=== PATIENT | male | born 1960 | race Caucasian/White ===

== ENCOUNTER 2023-09-11 15:55 | Observation (INO) | payer BC, SELFPAY ==
[2023-09-11] VITALS (10 sets, daily range): BP systolic 141–166; BP diastolic 84–102; PULSE 62–89; RESP 15–20; TEMP 36.1–36.8; O2SAT 97–100; BMI 30.2
--- NOTE | 2023-09-11 16:12 | EKG12_ITS ---
Test Reason : STROKE Blood Pressure : / mmHG Vent. Rate : 085 BPM Atrial Rate : 085 BPM P-R Int : 148 ms QRS Dur : 100 ms QT Int : 376 ms P-R-T Axes : 062 -02 039 degrees QTc Int : 447 ms Normal sinus rhythm Incomplete right bundle branch block Nonspecific ST abnormality Abnormal ECG Confirmed by HEATHER SAWYER, MICHAEL ([id number]), marketing editor SHERINE RIOS ([id number]) on 09/12/2023 8:38:00 AM Referred By: Confirmed By:MICHAEL ROMERO MD
--- NOTE | 2023-09-11 16:12 | RAD_ITS ---
STUDY: X-RAY CHEST REASON FOR EXAM: Male, 62 years old. Neuro deficit, acute, stroke suspected TECHNIQUE: Single AP portable view of the chest. COMPARISON: None. FINDINGS: The lungs are clear and expanded. There is no demonstrated pleural abnormality. Normal size heart. Normal mediastinum and sreekanth. Normal visualized pulmonary arteries. There is atherosclerotic tortuosity of the aortic arch and descending thoracic aorta. There are diffuse degenerative changes of the visualized thoracic spine. Normal visualized ribs, clavicles, and shoulders. There is no demonstrated abnormality of the visualized soft tissue structures of the upper abdomen. RAD/Chest 1 View IMPRESSION: Degenerative changes, as described above. No demonstrated acute cardiopulmonary process. Electronically Signed: Seth Langley MD at 16:57 EDT ,
--- NOTE | 2023-09-11 16:13 | CT_ITS ---
STUDY: CTA HEAD AND NECK WITH CONTRAST REASON FOR EXAM: Male, 62 years old. TIA RADIATION DOSAGE (If Supplied By Facility): CTDIvol = ( 18.69 ) mGy, DLP = ( 969.36 ) mGycm TECHNIQUE: CT angiography was performed with a multi-detector CT scanner. Data acquisition was obtained from the skull base through the vertex following intravenous administration of IV 100mL [id number]-370. MIP images were reconstructed from the axial data set. Post-processing of the angiographic images was performed, with multiplanar reformation and 3D reconstruction. Individualized dose optimization techniques were used for this CT. COMPARISON: Head CT dated September 11, 2023 FINDINGS: Normal bilateral petrous carotid arteries. There is calcified plaque formation of the right cavernous carotid artery, with a moderate stenosis (50-75%). Normal left cavernous carotid artery with a normal supraclinoid bifurcation. Normal right A1 segments of the anterior cerebral artery. Normal left A1 segments of the anterior cerebral artery. Normal intact anterior communicating artery (ACOM). Normal bilateral A2 segments of the anterior cerebral arteries. Normal right M1 and M2 segments of the middle cerebral arteries, with a normal M1 bifurcation. Normal left M1 and M2 segments of the middle cerebral arteries, with a normal M1 bifurcation. There is non-visualization of the right posterior communicating artery (PCOM). Normal left posterior communicating artery (PCOM). Normal bilateral vertebral arteries. Normal basilar artery with a normal basilar bifurcation. The visualized bilateral superior cerebellar (SCA) arteries are normal. Normal bilateral P1, P2 and visualized P3 segments of the posterior cerebral arteries. There is no demonstrated aneurysm of the [place]. No demonstrated thrombus or occlusion or hemodynamically significant stenosis of the major intracranial arteries. Neck CTA: AORTIC ARCH: There is atherosclerotic calcific plaque formation of the aortic arch and great vessels arising from the aortic arch, without a hemodynamically significant stenosis. There is a normal origin of the brachiocephalic, left common carotid, and left subclavian arteries. Normal origins of the brachiocephalic, left common carotid, and left subclavian arteries. RIGHT CAROTID ARTERIES: Normal right common carotid artery (CCA). There is mild atherosclerotic plaque formation with minimal narrowing of the right carotid bulb. There is mild atherosclerotic plaque formation of the origin of the right internal carotid artery with less than 50% cross sectional diameter stenosis. Normal visualized cervical portion of the right internal carotid artery. There is mild atherosclerotic plaque formation of the origin of the right external carotid artery with less than 50% cross sectional diameter stenosis. LEFT CAROTID ARTERIES: Normal left common carotid artery (CCA). There is mild atherosclerotic plaque formation with minimal narrowing of the left carotid bulb. Normal origin of the left internal carotid (ICA) artery without a hemodynamically significant stenosis. Normal visualized cervical portion of the left internal carotid artery. Normal origin of the left external carotid artery (ECA). VERTEBRAL ARTERIES: Mild atherosclerotic plaque and stenosis at the right vertebral/subclavian junction. Normal remaining aspects of the right extracranial vertebral artery. Normal left extracranial vertebral artery. CT/CTA Head AND Neck W/ Contrast IMPRESSION: 1. There is no demonstrated aneurysm of the [place]. No demonstrated thrombus or occlusion or hemodynamically significant stenosis of the major intracranial arteries. 2. Mild plaque of the right carotid bulb and origin of the ICA. N.B. : The above Results were Read Back by Seth Langley MD to Susanna Mcdowell MD, and understanding confirmed on 09/11/2023 17:31:00 (ET). Electronically Signed: Seth Langley MD at 17:32 EDT ,
--- NOTE | 2023-09-11 16:14 | ED.VIS.STROK ---
HPI History of Present Illness Chief Complaint: Neuro S/Sx Informant: patient, spouse/S.O. and EMS Onset/Context/Timing Onset: Today Narrative Narrative: Patient presents secondary to slurred speech and unable to use his left arm. He was sitting at work around 325 when he suddenly had difficulty speaking, coworker noted left-sided his face drooping, and he was unable to use his left arm. He states symptoms lasted about 10 seconds and then resolved. Within a few minutes he had a second episode of the same symptoms. He states he did stand and his legs seem to be unaffected. At this time symptoms seem to be resolved. Patient denies any past medical history, however states it has been several years since he has seen a physician. He does report that he has been having a pulling sensation in his lower chest lately that he thought was a pulled muscle. He denies any chest pain at this time. PFSH PFSH Medical History Obesity Former cigarette smoker Chewing tobacco use Medical History no medical history no medical history Home Medications ?Medication ?Instructions ?Recorded ?Last Taken ?Type NK 02/09/21 Unknown History Allergy/AdvReac Type Severity Reaction Status Date / Time No Known Allergies Allergy Verified 09/11/23 16:00 Family History (Updated 09/11/23 @ 20:[address] Nasrin Leon MD) Mother Diabetes Father Diabetes Brother CAD (coronary artery disease) Heart disease Hypertension CVA (cerebral vascular accident) Surgical History History of dental surgery Surgical History no surgical history Social History (Updated 09/11/23 @ 20:[address] Nasrin Leon MD) household members: spouse Smoking Status: Former smoker Smokeless tobacco user: chewing tobacco how long ago did patient quit smoking: Quit cigarette tobacco use 15 yrs prior, 1 ppd since teen until quit. alcohol intake: current alcohol intake frequency: a few times a month Alcohol type: beer substance use type: does not use ROS ROS ED Constitutional Constitutional ED: Denies chills or fever(s) Eyes Eyes: Denies change in vision or discharge from eye(s) ENT ENT ED: Denies discharge from eye(s), rhinorrhea or sore throat Cardiovascular Cardiovascular: Denies chest pain or palpitations Respiratory/Chest Respiratory/Chest: Denies cough or dyspnea Gastrointestinal Gastrointestinal: Denies abdominal pain, nausea or vomiting Genitourinary Genitourinary ED: Denies dysuria Musculoskeletal Musculoskeletal: Denies back pain or extremity pain Integumentary Denies Abrasions or rash Neurologic Neurologic: Reports weakness and other Details: Speech difficulty ; Denies headache(s) Psychiatric Psychiatric: Denies anxiety or depression Allergic/Immunologic Allergic/Immunologic ED: Denies lip swelling or urticaria EXAM Physical Exam Const Vital Signs: 09/11/23 15:56 09/11/23 16:12 09/11/23 16:12 Temperature 97.0 F L Temperature Source Temporal Pulse Rate 82 89 Respiratory Rate 16 19 H Blood Pressure 145/102 H 156/97 H Blood Pressure Mean 116 116 Pulse Ox 99 98 100 Oxygen Delivery Method Room Air Room Air Room Air 09/11/23 16:42 Temperature Temperature Source Pulse Rate 84 Respiratory Rate 18 Blood Pressure 166/98 H Blood Pressure Mean 120 Pulse Ox 99 Oxygen Delivery Method Room Air Positive well nourished and well developed General Appearance ED: well developed HEENT Reports normocephalic and head/scalp atraumatic Eyes PERRL and EOMs intact bilaterally Neck supple Chest Wall inspection of chest normal and palpation of chest normal Resp normal respiratory effort and clear to auscultation bilaterally Cardio regular rate and regular rhythm GI normal to inspection, nondistended, normoactive bowel sounds Palpation: soft Extremity normal to inspection Neuro oriented x3 and no sensory deficits noted Sensorium / Orientation: alert Motor Exam: strength 5/5 throughout Psych mental status grossly normal Skin no rashes or lesions noted NIHSS NIHSS Initial: 1a Level of Consciousness: 0 1b LOC Questions (Score 2 if aphasic/stupor): 0 1c LOC Commands (Only score 1st attempt): 0 2 Best Gaze (If aphasic, use reflexive mvmts.): 0 3 Visual: 0 4 Facial Palsy: 0 5 Motor Arm Right (UN = amputation/fusion): 0 5 Motor Arm Left: 0 6 Motor Leg Right: 0 6 Motor Leg Left: 0 7 Limb ataxia (Only + if out of proportion): 0 8 Sensory (Aphasia/stupor=0 or 1, coma=2): 0 9 Best Language: 0 10 Dysarthria (mute, coma=2, intubated=UN): 0 11 Extinction and Inattention (only scored if +): 0 Total Score: 0 MDM MDM MDM Narrative Medical decision making narrative: Patient presents with 2 separate episodes of TIA symptoms less than an hour ago. In light of this I will initiate a stroke alert. Patient placed on pocket machine operator. EKG obtained to evaluate for cardiac arrhythmia/ischemia. IV line established. Labwork obtained to evaluate for leukocytosis, anemia, and electrolyte derangement. Patient sent to CT for brain imaging along with CTA of the head and neck. History & Record Review Discussion w/independent historian: Patient and Significant other Lab Data Attestation: I reviewed the patient's lab results. Labs: Laboratory Results - last 24 hr 09/11/23 09/11/23 16:15 16:27 WBC 7.1 RBC 5.19 Hgb 15.2 Hct 45.4 MCV 87.5 MCH 29.3 MCHC 33.5 RDW Std Deviation 39.4 RDW Coeff of [place] 12.4 Plt Count 260 MPV 10.1 Immature Gran % (Auto) 0.300 Neut % (Auto) 49.3 Lymph % (Auto) 34.1 [place] % (Auto) 11.6 H Eos % (Auto) 4.1 Baso % (Auto) 0.6 Absolute Neuts (auto) 3.5 Absolute Lymphs (auto) 2.41 Nucleated RBC % 0 PT 12.4 INR 0.9 APTT 26.4 Sodium 140 Potassium 3.4 L Chloride 106 Carbon Dioxide 28.0 Anion Gap 6 BUN 20 H Creatinine 1.28 Est GFR (MDRD) Af Amer 73 Est GFR (MDRD) Non-Af 60 BUN/Creatinine Ratio 15.6 Glucose 72 L Calcium 9.5 Magnesium 2.2 Troponin I High Sens < 3 L POC Glucose 69 L Radiography Chest X-Ray - ED: 1 View, Read by ED Physician, Normal, Heart, Lungs and Mediastinum Diagnostic Testing: Clinical Impression(s) from Imaging Studies Chest X-Ray 09/11/23 16:12 IMPRESSION: Degenerative changes, as described above. No demonstrated acute cardiopulmonary process. Electronically Signed: Seth Langley MD at 16:57 EDT , Head/Neck CTA 09/11/23 16:13 IMPRESSION: 1. There is no demonstrated aneurysm of the [place]. No demonstrated thrombus or occlusion or hemodynamically significant stenosis of the major intracranial arteries. 2. Mild plaque of the right carotid bulb and origin of the ICA. N.B. : The above Results were Read Back by Seth Langley MD to Susanna Mcdowell MD, and understanding confirmed on 09/11/2023 17:31:00 (ET). Electronically Signed: Seth Langley MD at 17:32 EDT , ADDENDUM: 09/11/23 1739 IMPRESSION: 1. There is no demonstrated aneurysm of the [place]. No demonstrated thrombus or occlusion or hemodynamically significant stenosis of the major intracranial arteries. 2. Mild plaque of the right carotid bulb and origin of the ICA. N.B. : The above Results were Read Back by Seth Langley MD to Susanna Mcdowell MD, and understanding confirmed on 09/11/2023 17:31:00 (ET). Electronically Signed: Seth Langley MD at 17:32 EDT , Brain CT 09/11/23 16:16 IMPRESSION: No acute intracranial findings. Electronically Signed: Zak Zapata MD at 16:35 EDT , ADDENDUM: 09/11/23 1644 IMPRESSION: No acute intracranial findings. N.B. : The above Results were Read Back by Zak Zapata MD to Susanna Mcdowell MD, and understanding confirmed on 09/11/2023 16:37:35 (ET). Electronically Signed: Zak Zapata MD at 16:35 EDT , EKG Initial EKG: Attestation: I personally reviewed and interpreted this EKG as follows: Interpretation: Sinus Rhythm (Sinus rhythm 85 bpm with an incomplete right bundle branch block. No acute ischemia.) Treatment and Re-Evaluation Narrative: Patient seen and evaluated by neurologist at [facility]. Symptoms resolved at the time of their exam as well. Noncontrast head CT unremarkable. They recommended that if the CTA of the head and neck were normal patient can be admitted here for remainder of stroke workup. CBC reveals white count of 7.1 with normal differential. Hemoglobin 15.2. Chemistry studies reveal slightly low potassium at 3.4. BUN is 20 and creatinine is 1.28. I do not have prior values for comparison. Troponin is less than 3. EKG is sinus rhythm with incomplete right bundle branch block. No acute ischemia. CTA of the head and neck reveals mild disease in the carotids, no acute findings in the brain. Patient will be admitted to observation status for remainder of stroke workup. Discharge Plan Dx/Rx/DC Orders Clinical Impression: Brain TIA Disposition Disposition: Acute Care Hospital [facility] Discharge Date/Time: 09/11/23 18:03
--- NOTE | 2023-09-11 16:14 | NURSING ---
STROKE ALERT CALLED
--- NOTE | 2023-09-11 16:16 | CT_ITS ---
We are attempting to reach an attending provider to discuss findings. An addendum with communication details will be sent when the communication is complete. INDICATION: Neuro deficit, acute, stroke suspected EXAMINATION: CT BRAIN - CT Head or Brain W/O Contrast Injection TECHNIQUE: Multiple axial images were obtained of the head without intravenous contrast. A radiation dose optimization technique was used for this scan. IV Contrast dosage and agent: None. COMPARISON: None. FINDINGS: BRAIN PARENCHYMA: No intra- or extra-axial hemorrhage. No evidence of acute infarct. No intracranial mass or mass effect. There is preservation of the downing/white matter interface. Posterior fossa structures are unremarkable. CSF SPACES: Appropriate for age. No hydrocephalus. Basal cisterns are patent. CALVARIUM, SKULL BASE, PARANASAL SINUSES AND MASTOID AIR CELLS: Clear. No discrete lytic or blastic abnormalities. ORBITS: Both globes, extraocular muscles, optic nerves and retrobulbar fat appear unremarkable. CT/STROKE Brain/Head without Cont IMPRESSION: No acute intracranial findings. Electronically Signed: Zak Zapata MD at 16:35 EDT ,
--- NOTE | 2023-09-11 16:21 | NURSING ---
NO OLD EKGS
[2023-09-11 16:24] LABS: Absolute Lymphocyte Count 2.41 X10^3/uL (0.83-4.51); Absolute Neutrophil Count 3.5 X10^3/uL (2.0-7.7); Basophil# 0.04 X10^3/uL; Basophil% 0.6 % (0-1); Eosinophil# 0.29 X10^3/uL; Eosinophils% 4.1 % (0-5); Hematocrit 45.4 % (40-54); Hemoglobin 15.2 g/dL (13.0-16.5); Lymphocyte # 2.41 X10^3/ul (0.83-4.51); Lymphocyte % 34.1 % (19-41); Mean Corp Hgb Conc 33.5 g/dL (32-36); Mean Corpuscular Hgb 29.3 pg (27.0-32.0); Mean Corpuscular Volume 87.5 fL (80-94); Mean Platelet Vol. 10.1 fl (6.2-12.0); Monocyte# 0.82 X10^3/uL; Monocyte% 11.6 % (0-10); NRBC Flagged by Analyzer 0 % (0-5); Neutrophil # 3.48 X10^3/uL (2.7-7.7); Neutrophil % 49.3 % (47-70); Platelet Count 260 K/mm3 (150-450); RBC Distribution Width CV 12.4 % (11.6-14.6); RBC Distribution Width SD 39.4 fl (35.1-43.9); Red Blood Count 5.19 M/mm3 (4.6-6.2); White Blood Count 7.1 K/mm3 (4.4-11.0)
[2023-09-11 16:34] LABS: International Normalized Ratio 0.9; Partial Thromboplast Time 26.4 Seconds (24.1-36.2); Prothrombin Time (Protime)PT. 12.4 SECONDS (11.7-14.9)
[2023-09-11 16:41] LABS: Anion Gap 6 (5-15); BUN 20 mg/dL (7-18); BUN/Creat Ratio 15.6 RATIO (10-20); Calcium,Total 9.5 mg/dL (8.5-10.1); Chloride 106 mmol/L (98-107); Creatinine, Serum 1.28 mg/dL (0.70-1.30); EST Glomerular Filtration Rate 60 mL/min (>60); Est Glom Filt Rate - Afr Amer 73 mL/min (>60); Glucose 72 mg/dL (74-106); Potassium 3.4 mmol/L (3.5-5.1); Sodium Level 140 mmol/L (136-145); Troponin-I HS < 3 pg/mL (3.0-78.0)
[2023-09-11 16:48] LABS: Bedside Glucose 69 mg/dL (74-106)
--- NOTE | 2023-09-11 16:59 | HP.PCM.HOS_ITS ---
HPI - General General Date of Admission: 09/11/23 Date of Service: 09/11/23 Chief Complaint: Slurred speech, L sided facial droop, LUE paresthesias, LUE weakness. HPI Narrative The patient is a 62 y/o M w/ PMHx: Chew tobacco use, Obesity who presents to the [facility] ED on 09/11/23 with history of second work in approximately 325 onset significant difficulty speaking with a coworker noticing a left sided facial droop and at that point he was unable to use his left arm with also paresthesias with reportedly slurred speech with the symptoms lasting approximately 10 seconds with complete resolution following however he had another episode a few minutes following this with symptoms again resolving with no neurological findings to his lower extremities reporting that he was able to stand and move without issue that way and given these findings prompted ED evaluation to be cautious. He does report that he has not seen a physician in many years and denies any known medical history. In the ED initial NIH stroke score 0 with resolution of symptoms at time of ED evaluation. Patient also reported atypical sensation of lower chest strain notes he is regularly active but not necessarily aerobic but states it is currently improved. He denies any recent dyspnea. Workup in the ED included vital signs T97, heart rate 82, BP 145/102, respiratory rate 16, 99% on room air, CBC with WC 7.1, human 15.2, platelets 260 without marked shift, coags unremarkable, BMP with potassium 3.4, BUN/creatinine 20/1.28, glucose 72, troponin <3, EKG SR with incomplete RBBB, CT head with no acute intracranial findings, CTA head and neck with no demonstrated aneurysm in the pala of [place], no demonstrated thrombus or occlusion or hemodynamically significant stenosis of the major intracranial arteries, mild plaque of the right carotid bulb and origin of the ICA, CXR with no acute cardiopulmonary findings. ED discussed case and reviewed with neurology given stroke alert initiation. In the ED patient ministered full-strength aspirin therapy. [facility] Medical History Obesity Former cigarette smoker Chewing tobacco use Medical History no medical history Home Medications ?Medication ?Instructions ?Recorded ?Last Taken ?Type NK 02/09/21 Unknown History Allergy/AdvReac Type Severity Reaction Status Date / Time No Known Allergies Allergy Verified 09/11/23 16:00 Family History (Updated 09/11/23 @ 20:[address] Nasrin Leon MD) Mother Diabetes Father Diabetes Brother CAD (coronary artery disease) Heart disease Hypertension CVA (cerebral vascular accident) Surgical History History of dental surgery Surgical History no surgical history Social History (Updated 09/11/23 @ 20:[address] Nasrin Leon MD) household members: spouse Smoking Status: Former smoker Smokeless tobacco user: chewing tobacco how long ago did patient quit smoking: Quit cigarette tobacco use 15 yrs prior, 1 ppd since teen until quit. alcohol intake: current alcohol intake frequency: a few times a month Alcohol type: beer substance use type: does not use ROS ROS Narrative Admission Review of Systems: CONSTITUTIONAL: No weight loss, fever, chills, + weakness or fatigue. HEENT: + Transient left facial droop. Eyes: No visual loss, blurred vision, double vision or yellow sclerae. Ears, Nose, Throat: No hearing loss, sneezing, congestion, runny nose or sore throat. SKIN: No rash or itching, lesions, wounds. CARDIOVASCULAR: No chest pain, chest pressure or chest discomfort, palpitations, edema, orthopnea, syncopal events. RESPIRATORY: No shortness of breath, cough or sputum, wheezing, hemoptysis. GASTROINTESTINAL: No anorexia, nausea, vomiting or diarrhea, abdominal pain, melena, BRBPR. GENITOURINARY: No dysuria, frequency, urgency or retention. NEUROLOGICAL: + Transient left facial droop, slurred speech, left upper extremity paresthesias and left upper extremity weakness. No headache, dizziness, syncope, change in bowel or bladder control, seizure. MUSCULOSKELETAL: + muscle, back pain, joint pain or stiffness. HEMATOLOGIC: No anemia, bleeding or bruising. LYMPHATICS: No enlarged nodes. No history of splenectomy. PSYCHIATRIC: No history of depression or anxiety. ENDOCRINOLOGIC: No reports of sweating, cold or heat intolerance. No polyuria or polydipsia. ALLERGIES: No history of asthma, hives, eczema or rhinitis. Vital Signs Vital Signs Vital Signs: 09/11/23 15:56 09/11/23 16:12 09/11/23 16:12 Temperature 97.0 F L Temperature Source Temporal Pulse Rate 82 89 Respiratory Rate 16 19 H Blood Pressure 145/102 H 156/97 H Blood Pressure Mean 116 116 Pulse Ox 99 98 100 Oxygen Delivery Method Room Air Room Air Room Air Physical Exam Narrative Physical Examination: General: Awake, alert, oriented x 3 and cooperative, seated upright in the ED bed, notes still no recurrent neurological symptoms. Skin: Normal color, normal turgor, no icterus, no cyanosis except occasional staged ecchymoses, abrasion. HEENT: AT/NC, EOMI, PERRLA, MMM, no carotid bruits or JVD noted. Lungs: CTA bilaterally, moderate effort, mild decrease BL bases, no rales, ronchi or wheezing. Heart: Regular rate and rhythm; no gallop, rub audible. Abdomen: Soft, obese, NTTP, ND, normal BS, no HSM. Extremities: No cyanosis, clubbing, or edema. Neurological: Patient awake, alert, oriented as noted, cognitive function intact; pupils equally reactive to light and accommodation, cranial nerves grossly normal, moving all 4 extremities, no focal deficits, strength preserved, sensation intact, finger-nose and [id number] appropriate, equivocal Babinski. Psychiatric: Affect appears normal, no acute evidence of depressive or anxiety feelings. Results Lab / Micro Data 09/11/23 16:15 09/11/23 16:15 Labs: Laboratory Results - last 24 hr 09/11/23 16:15: WBC 7.1, RBC 5.19, Hgb 15.2, Hct 45.4, MCV 87.5, MCH 29.3, MCHC 33.5, RDW Std Deviation 39.4, RDW Coeff of [place] 12.4, Plt Count 260, MPV 10.1, Immature Gran % (Auto) 0.300, Neut % (Auto) 49.3, Lymph % (Auto) 34.1, [place] % (Auto) 11.6 H, Eos % (Auto) 4.1, Baso % (Auto) 0.6, Absolute Neuts (auto) 3.5, Absolute Lymphs (auto) 2.41, Nucleated RBC % 0, PT 12.4, INR 0.9, APTT 26.4, Sodium 140, Potassium 3.4 L, Chloride 106, Carbon Dioxide 28.0, Anion Gap 6, BUN 20 H, Creatinine 1.28, Est GFR (MDRD) Af Amer 73, Est GFR (MDRD) Non-Af 60, BUN/Creatinine Ratio 15.6, Glucose 72 L, Calcium 9.5, Troponin I High Sens < 3 L 09/11/23 16:27: POC Glucose 69 L Imaging Radiology Impression Chest X-Ray 09/11/23 16:12 IMPRESSION: Degenerative changes, as described above. No demonstrated acute cardiopulmonary process. Electronically Signed: Seth Langley MD at 16:57 EDT Reading Location ID and State: [facility] / [place] , Service support , Brain CT 09/11/23 16:16 IMPRESSION: No acute intracranial findings. Electronically Signed: Zak Zapata MD at 16:35 EDT , ADDENDUM: 09/11/23 1644 IMPRESSION: No acute intracranial findings. N.B. : The above Results were Read Back by Zak Zapata MD to Susanna Mcdowell MD, and understanding confirmed on 09/11/2023 16:37:35 (ET). Electronically Signed: Zak Zapata MD at 16:35 EDT , Assessment & Plan Assessment/Plan (1) Brain TIA: PLAN: Plan The patient is a 62 y/o M w/ PMHx: Chew tobacco use, Obesity who presents to the [facility] ED on 09/11/23 with history of second work in approximately 325 onset significant difficulty speaking with a coworker noticing a left sided facial droop and at that point he was unable to use his left arm with also paresthesias with reportedly slurred speech with the symptoms lasting approximately 10 seconds with complete resolution following however he had another episode a few minutes following this with symptoms again resolving with no neurological findings to his lower extremities reporting that he was able to stand and move without issue that way and given these findings prompted ED evaluation to be cautious. #1. Transiently slurred speech, left-sided facial droop, left upper extremity weakness concerning for TIA/CVA: Will admit to PCU, will obtain MRI Brain, ECHO, PT/OT/Speech/Nutrition evaluation per protocol. Will allow permissive HTN, initiate on asa, initiate statin w/ AM FLP, fall precautions. Mag, TSH, FLP, HgbA1c requested. Maintain on fall and aspiration precautions. Request continued neurology consultation. #2. Elevated BP without hypertensive diagnosis: BP upon presentation elevated above goal, no recent PCP evaluations thus unknowns if patient has underlying undiagnosed hypertension, given presentation #1 will maintain permissive hypertension with PRN agents per stroke protocol in the interim. #3. Atypical chest pain, suspect muscular strain: EKG in ED sinus rhythm with incomplete right bundle branch block, CXR w/ no acute cardiopulmonary findings, initial trop less than 3. Will maintain on monitored bed to assure no acute myocardial infarction with serial cardiac enzymes and EKGs. Magnesium level requested. FLP in AM. ASA. #4. Hypokalemia: Admission K+ 3.4, magnesium level requested, supplementation given, repeat level in AM. #5. Hypoglycemia: Patient with glucose upon presentation 72, notes he has not eaten recently is asking for food but does not have any history of hypoglycemia, hemoglobin A1c requested as noted, continue to follow. #6. Chew Tobacco Abuse, Former cigarette tobacco use: Encouraged continued cigarette tobacco cessation but encouraged concurrent chew tobacco cessation, inpatient consultation per RT, NR if desired. #7. Obesity: Weight loss and lifestyle changes encouraged. #8. DVT prophylaxis: Lovenox. Charges/Coding Visit Charges Inpatient E&M: 76164 Init Hosp L3
[2023-09-11 17:56] LABS: Magnesium 2.2 mg/dL (1.6-2.6)
[2023-09-11] MEDS: Aspirin 325 MG Tablet PO (17:58)
--- NOTE | 2023-09-11 18:21 | MRI_ITS ---
We are attempting to reach an attending provider to discuss findings. An addendum with communication details will be sent when the communication is complete. STUDY: MRI BRAIN WITHOUT CONTRAST REASON FOR EXAM: Male, 62 years old. TIA/CVA TECHNIQUE: Multiplanar multisequence imaging of the brain was performed without the administration of intravenous contrast. COMPARISON: Noncontrast head CT 09/11/2023 FINDINGS: The ventricles, cisterns, and sulci are within normal limits for patients age. Linear focus of acute diffusion restriction abnormality in the high right parietal white matter. No succeptibility artifict to suggest intracranial hemorrhage or mineralization. Major intracranial signal voids are preserved. There is no midline shift, mass effect, or extra axial fluid collections are seen. No CP angle or IAC mass is seen. The orbits are unremarkable. The sella turcica and craniovertebral junction are within normal limits. The visualized paranasal sinuses are clear. The mastoid air cells are clear. MRI/Brain without Contrast IMPRESSION: Acute ischemia in the high right parietal white matter. Electronically Signed: Zak Zapata MD at 21:46 EDT ,
--- NOTE | 2023-09-11 18:21 | ECHOD_ITS ---
Reason For Study: TIA/CVA Procedure This was a 2D Doppler, Color Flow transthoracic echocardiogram. Exam performed portable in patient room. Left Ventricle Normal LV size. Left ventricular systolic function is normal. The left ventricular ejection fraction is 60 %. No regional wall motion abnormalities noted. Right Ventricle Normal RV size. Normal systolic function. Atria Normal left atrium. Normal right atrium. Bubble contrast study negative for right to left interatrial shunt. Mitral Valve Systolic anterior motion of the mitral valve. Tricuspid Valve Normal tricuspid valve. Aortic Valve Trisinus/trileaflet aortic valve. Pulmonic Valve Normal pulmonic valve. Great Vessels Normal aortic root. The pulmonary artery is normal size. Normal inferior vena cava. Pericardium/Pleural No pericardial effusion. Medication Performed a rapid injection of agitated mix of 9 cc saline and 1cc air to assess for atrial septal defect. MMode/2D Measurements & Calculations LVIDd: 5.0 cm IVSd: 0.98 cm LVOT diam: 2.2 cm LVIDs: 2.7 cm LVPWd: 0.92 cm RVDd: 3.8 cm FS: 46.1 % LVOT area: 3.8 cm2 Ao root diam: 3.5 cm LAV(MOD-bp): 36.4 ml LVAd ap4: 26.9 cm2 LAV(MOD-bp) Indexed: 16.4 ml/m2 LVLd ap4: 8.1 cm LAV(MOD-sp2): 35.6 ml EDV(MOD-sp4): 72.2 ml LAV(MOD-sp4): 37.2 ml EDV(sp4-el): 75.2 ml LVAs ap4: 14.7 cm2 LVLs ap4: 6.9 cm ESV(MOD-sp4): 27.7 ml ESV(sp4-el): 26.4 ml EF(MOD-sp4): 61.6 % EF(sp4-el): 64.8 % LVAd ap2: 28.0 cm2 SV(MOD-sp4): 44.5 ml SV(MOD-sp2): 55.1 ml LVLd ap2: 8.4 cm EDV(MOD-sp2): 78.1 ml EDV(sp2-el): 79.4 ml LVAs ap2: 13.4 cm2 LVLs ap2: 7.0 cm ESV(MOD-sp2): 23.0 ml ESV(sp2-el): 21.8 ml EF(MOD-sp2): 70.6 % SV(sp4-el): 48.7 ml LA dimension(2D): 3.8 cm LA A4 area: 15.8 cm2 RA A4 area: 13.7 cm2 TAPSE: 2.5 cm Time Measurements MV dec time: 0.24 sec Doppler Measurements & Calculations MV E max everett: 65.1 cm/sec Lat Peak E' Everett: 10.4 cm/sec Med Peak E' Everett: 9.2 cm/sec MV A max everett: 70.5 cm/sec E/E' lat: 6.3 E/E' med: 7.0 MV E/A: 0.92 Ao V2 max: 149.7 cm/sec LV V1 max: 103.8 cm/sec MV dec slope: 276.6 cm/sec2 Ao max P.0 mmHg LV V1 max P.3 mmHg Ao V2 mean: 88.9 cm/sec LV V1 mean P.0 mmHg Ao mean P.7 mmHg LV V1 mean: 65.1 cm/sec Ao V2 VTI: 30.7 cm LV V1 VTI: 22.1 cm AV (velocity ratio): 0.72 NOHEMY(I,D): 2.7 cm2 NOHEMY(V,D): 2.6 cm2 SV(LVOT): 84.3 ml PA V2 max: 82.1 cm/sec PI end-d everett: 90.0 cm/sec PA max PG (full): 1.7 mmHg TR max everett: 252.3 cm/sec TR max P.5 mmHg ECHO/Echo Complete Interpretation Summary Normal LV size. Left ventricular systolic function is normal. The left ventricular ejection fraction is 60 %. Bubble contrast study negative for right to left interatrial shunt. Structurally normal valves. Ordering Physician: Nasrin Leon Referring Physician: Darin Graham MD Performed By: Tabitha Iniguez RDCS and Student
[2023-09-11] MEDS: Potassium Chloride Oral Tablet 20 MEQ 40 MEQ PO (19:01)
[2023-09-11] MEDS: 0.9% Normal Saline (1000mL) 1,000 ML 100 ML IV (19:01)
[2023-09-11 19:29] LABS: Troponin-I HS < 3 pg/mL (3.0-78.0)
--- NOTE | 2023-09-11 22:25 | NURSING ---
Critical MRI finding received from Dr Kennedy, radiology. Small area of white matter ischemia noted to right high parietal. 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
[2023-09-11 23:02] LABS: Troponin-I HS 4 pg/mL (3.0-78.0)
--- NOTE | 2023-09-11 23:06 | PCM.HOSP.N ---
Hospitalist Note MRI brain came back positive for acute ischemia in the high right parietal white matter. Per nursing staff, patient with continued NIH score of 0. Patient on aspirin and statin, and all orders per stroke protocol in place from admission. Will defer to neurology tomorrow on possible need for Plavix going forward. No changes to current management required.
[2023-09-12 01:55] VITALS: BMI 30.2
[2023-09-12 02:35] VITALS: BP 128/82; PULSE 71; RESP 16; TEMP 36.5; O2SAT 99
[2023-09-12 06:35] VITALS: BP 126/84; PULSE 75; RESP 16; TEMP 36.4; O2SAT 98
[2023-09-12 06:42] LABS: Absolute Lymphocyte Count 1.55 X10^3/uL (0.83-4.51); Absolute Neutrophil Count 3.1 X10^3/uL (2.0-7.7); Basophil# 0.05 X10^3/uL; Basophil% 0.9 % (0-1); Eosinophil# 0.19 X10^3/uL; Eosinophils% 3.5 % (0-5); Hemoglobin 14.3 g/dL (13.0-16.5); Lymphocyte # 1.55 X10^3/ul (0.83-4.51); Lymphocyte % 28.3 % (19-41); Mean Corp Hgb Conc 32.5 g/dL (32-36); Mean Corpuscular Hgb 28.7 pg (27.0-32.0); Mean Corpuscular Volume 88.2 fL (80-94); Mean Platelet Vol. 10.1 fl (6.2-12.0); Monocyte# 0.55 X10^3/uL; NRBC Flagged by Analyzer 0 % (0-5); Neutrophil # 3.13 X10^3/uL (2.7-7.7); Neutrophil % 57.1 % (47-70); Platelet Count 235 K/mm3 (150-450); RBC Distribution Width CV 12.5 % (11.6-14.6); RBC Distribution Width SD 40.7 fl (35.1-43.9); Red Blood Count 4.99 M/mm3 (4.6-6.2); White Blood Count 5.5 K/mm3 (4.4-11.0)
[2023-09-12 07:15] LABS: Amphetamine Urine VISTA NEGATIVE (<1000 ng/mL); Barbiturate Urine VISTA NEGATIVE (< 200 ng/mL); Benzodiazepine Urine VISTA NEGATIVE (< 200 ng/mL); Cocaine Urine VISTA NEGATIVE (< 300 ng/mL); Ecstacy Urine VISTA NEGATIVE (< 500 ng/mL); Methadone Urine VISTA NEGATIVE (< 300 ng/mL); PCP Urine VISTA NEGATIVE (< 25 ng/mL); THC Urine VISTA NEGATIVE (< 50 ng/mL); Vista UDS pH Range 5
[2023-09-12 07:35] LABS: AST(SGOT) 24 U/L (15-37); Alanine Aminotransfer ALT/SGPT 33 U/L (16-61); Albumin, Serum 3.5 g/dL (3.2-5.0); Alkaline Phosphatase 124 U/L (45-117); Anion Gap 5 (5-15); BUN 17 mg/dL (7-18); Calcium,Total 8.4 mg/dL (8.5-10.1); Chloride 108 mmol/L (98-107); Cholesterol 236 mg/dL (200); Creatinine, Serum 1.06 mg/dL (0.70-1.30); EST Glomerular Filtration Rate 75 mL/min (>60); Est Glom Filt Rate - Afr Amer 91 mL/min (>60); Estimated Creatinine Clearance 87.78 ml/min; Globulin 3.5 g/dL (2.2-4.2); Glucose 97 mg/dL (74-106); High Density Lipoprotein 44 mg/dL; Potassium 4.4 mmol/L (3.5-5.1); Sodium Level 139 mmol/L (136-145); Thyroid Stim Hormone (TSH) 2.23 uIU/mL (0.358-3.74); Triglycerides 146 mg/dL; Very Low Density Lipoprotein 29 mg/dL (5-40)
[2023-09-12 08:28] LABS: Hemoglobin A1c 5.4 % (3.8-5.6)
[2023-09-12 09:31] VITALS: BP 128/88; PULSE 56; RESP 14; TEMP 36.6; O2SAT 100
[2023-09-12] MEDS: Aspirin 81 MG TAB.CHEW PO (09:35)
[2023-09-12 09:42] VITALS: O2SAT 97
--- NOTE | 2023-09-12 10:39 | CASEMGMT ---
SW completed a PHQ 9 with patient as he had a Stroke. Patient scored a 0. Patient declined any need for counseling resources. Arminda VALLE
[2023-09-12 12:44] VITALS: BP 146/91; PULSE 57; RESP 15; TEMP 36.6; O2SAT 98
--- NOTE | 2023-09-12 13:16 | PCM.DC ---
Discharge Instructions Diet Discharge Diet: No restrictions Activity Discharge Activity: Return to Normal Activity Weight Bearing Status: Full weight bearing Follow Up Care Test Results: Test results from this visit will be discussed in further detail at your follow-up appointment, if applicable. Discharge Plan Admission Admit Date/Time: 09/11/23 17:04 Primary Reason for Your Visit: RIGHT SIDED STROKE PARIETAL AREA Attending Provider: Herman Lopez Primary Care Provider: Darin Graham Consulting Providers: Burton Bansal; Tiffanie Max; Laura Stephens; Porsha Carrasco; Nithya Isbell; Ez Hawk; Johana Watts; Sav Hagen; Delfino Aleman; Edin Krause; Daisy Guerra; Rafi Ahmadi; Gabriella Jeffries; Nahun Moore; Delmi Ag; Harjit Lowe; Kaylyn Hawk; Andi Andre; Dea Varghese; Claire Rios; Nasrin Leon Instructions Additional Instructions / Restrictions: Avoid taking ibuprofen, Aleve, or Advil while taking aspirin and clopidogrel, use aspirin and clopidogrel for 90 days, then after that just take aspirin 81 mg daily in addition to your Lipitor Discharge Orders/Prescriptions Prescriptions: New clopidogrel [Plavix] 75 mg tablet 75 mg PO DAILY Qty: 30 2RF atorvastatin [Lipitor] 80 mg tablet 80 mg PO DAILY Qty: 30 2RF aspirin 81 mg tablet,delayed release (DR/EC) 81 mg PO DAILY Qty: 1 0RF Referrals / Follow Up: Darin Graham MD [Primary Care Provider] - See Referral Note (Within 2 to 3 weeks) Disposition Disposition (needs filled in before D/C Order can be placed): Home, Self Care
--- NOTE | 2023-09-12 13:21 | PCM.DC.SUM ---
Providers Date of Admission: 09/11/23 Date of Discharge: 09/12/23 Primary Care Physician: Dr. Darin Graham MD Consultations 09/11/23 18:21 Consult: Tele-Neurology Routine Consulting Provider: [facility] Reason for Consult: Acute Ischemic Stroke/TIA EMERGENT Consult: No MD Notified: Yes Date Notified: 09/11/23 Time Notified: 17:05 Method of Notification: ED Physician Initiated Nursing Unit Staff Notify [facility] of Tele-Neurology Consult: Yes Reason For Visit: TIA Diagnosis Discharge Diagnosis (1) Brain TIA: Status: Acute Code(s): G45.9 - Transient cerebral ischemic attack, unspecified Plan 1. Right parietal ischemic stroke #2 hyperlipidemia Medications at Discharge Home Medications aspirin 81 mg tablet,delayed release 81 mg PO DAILY #1 TAB 09/12/23 atorvastatin 80 mg tablet (Lipitor) 80 mg PO DAILY #30 tabs 09/12/23 clopidogrel 75 mg tablet (Plavix) 75 mg PO DAILY #30 tabs 09/12/23 Hospital Course Operations None Procedures 2-D Echocardiogram Summary of Care Provided Minutes Spent on Discharge: 31 Hospital Course: This 62-year-old white male was seen in the emergency room at [facility] with complaints of a brief episode of slurred speech and severe left arm weakness. Patient stated he was at work and suddenly had difficulty speaking, coworker noted left-sided facial drooping and he was unable to use his left arm for a brief period of time. The symptoms lasted approximately 10 seconds according to the patient patient then stated he had another brief episode shortly afterwards, by the time he got to the emergency room, he had no symptomology. A stroke alert was initiated when the patient got to the ER, his NIH stroke score was 0, he underwent a CT of the brain along with a CTA of the head and neck, these imaging tests were unremarkable for large vessel occlusion or acute process. Patient was placed in observation status on PCU, he underwent an MRI of the brain which showed a right parietal infarct, patient's lipid profile was abnormal showing an elevated LDH and cholesterol. Patient was seen and consultation by teleneurology, the results were relayed to me by nursing and the patient-I did not visualize the consultation before the patient was discharged home. It was recommended that the patient stay on Plavix and aspirin for 90 days and then stay on aspirin thereafter and it was also recommended he stay on a statin. Patient was evaluated by PT OT and speech therapy, the patient did not require outpatient PT OT or speech therapy. Echocardiogram was performed which showed no evidence of thrombus, there was no intra-atrial septal defect noted. On 09/12/2023, patient was seen and examined: On examination he appeared in good health and spirits. Vital signs as documented. Skin warm and dry and without overt rashes. Neck without JVD, neck was supple, trachea midline, thyroid was normal. Lungs clear bilaterally, normal air movement was noted. Heart exam notable for regular rhythm, normal sounds and absence of murmurs, rubs or gallops. Abdomen unremarkable and without evidence of organomegaly, masses, or abdominal aortic enlargement. Bowel sounds are present, abdomen is not distended. Extremities nonedematous, no cyanosis was noted, no clubbing was noted. Neuro: Cranial nerves II through XII are grossly intact, no focal motor deficits were noted, sensation to light touch and pinprick intact, motor exam 5/5 throughout. Psych: Patient is alert and oriented x3, he does not appear anxious or depressed, he does not appear agitated. Patient was discharged home in stable condition on 09/12/2023 Weight / BMI Weight Weight: 101.1 kg Body Mass Index (BMI) 30.2 ABG / Lab / Microbiology Data 09/12/23 06:09 09/12/23 06:09 Laboratory: Laboratory Results - last 24 hr 09/11/23 06:49: Urine Opiates Screen NEGATIVE, Urine Methadone Screen NEGATIVE, Ur Barbiturates Screen NEGATIVE, Ur Phencyclidine Scrn NEGATIVE, Ur Amphetamines Screen NEGATIVE, MDMA (Ecstasy) Screen NEGATIVE, U Benzodiazepines Scrn NEGATIVE, Urine Cocaine Screen NEGATIVE, U Cannabinoids Screen NEGATIVE, Ur Drug Screen Comment 09/11/23 16:15: WBC 7.1, RBC 5.19, Hgb 15.2, Hct 45.4, MCV 87.5, MCH 29.3, MCHC 33.5, RDW Std Deviation 39.4, RDW Coeff of [place] 12.4, Plt Count 260, MPV 10.1, Immature Gran % (Auto) 0.300, Neut % (Auto) 49.3, Lymph % (Auto) 34.1, [place] % (Auto) 11.6 H, Eos % (Auto) 4.1, Baso % (Auto) 0.6, Absolute Neuts (auto) 3.5, Absolute Lymphs (auto) 2.41, Nucleated RBC % 0, PT 12.4, INR 0.9, APTT 26.4, Sodium 140, Potassium 3.4 L, Chloride 106, Carbon Dioxide 28.0, Anion Gap 6, BUN 20 H, Creatinine 1.28, Est GFR (MDRD) Af Amer 73, Est GFR (MDRD) Non-Af 60, BUN/Creatinine Ratio 15.6, Glucose 72 L, Calcium 9.5, Magnesium 2.2, Troponin I High Sens < 3 L 09/11/23 16:27: POC Glucose 69 L 09/11/23 18:55: Troponin I High Sens < 3 L 09/11/23 22:30: Troponin I High Sens 4 09/12/23 06:09: WBC 5.5, RBC 4.99, Hgb 14.3, Hct 44.0, MCV 88.2, MCH 28.7, MCHC 32.5, RDW Std Deviation 40.7, RDW Coeff of [place] 12.5, Plt Count 235, MPV 10.1, Immature Gran % (Auto) 0.200, Neut % (Auto) 57.1, Lymph % (Auto) 28.3, Wake % (Auto) 10.0, Eos % (Auto) 3.5, Baso % (Auto) 0.9, Absolute Neuts (auto) 3.1, Absolute Lymphs (auto) 1.55, Nucleated RBC % 0, Sodium 139, Potassium 4.4, Chloride 108 H, Carbon Dioxide 26.0, Anion Gap 5, BUN 17, Creatinine 1.06, Estim Creat Clear Calc 87.78, Est GFR (MDRD) Af Amer 91, Est GFR (MDRD) Non-Af 75, BUN/Creatinine Ratio 16.0, Glucose 97, Hemoglobin A1c 5.4, Calcium 8.4 L, Total Bilirubin 0.30, AST 24, ALT 33, Alkaline Phosphatase 124 H, Total Protein 7.0, Albumin 3.5, Globulin 3.5, Albumin/Globulin Ratio 1.0, Triglycerides 146, Cholesterol 236 H, LDL Cholesterol 163 H, VLDL Cholesterol 29, HDL Cholesterol 44, TSH 2.23 Radiography Diagnostic Testing: Radiology Impression Chest X-Ray 09/11/23 16:12 IMPRESSION: Degenerative changes, as described above. No demonstrated acute cardiopulmonary process. Electronically Signed: Seth Langley MD at 16:57 EDT , Head/Neck CTA 09/11/23 16:13 IMPRESSION: 1. There is no demonstrated aneurysm of the [place]. No demonstrated thrombus or occlusion or hemodynamically significant stenosis of the major intracranial arteries. 2. Mild plaque of the right carotid bulb and origin of the ICA. N.B. : The above Results were Read Back by Seth Langley MD to Susanna Mcdowell MD, and understanding confirmed on 09/11/2023 17:31:00 (ET). Electronically Signed: Seth Langley MD at 17:32 EDT , ADDENDUM: 09/11/23 1739 IMPRESSION: 1. There is no demonstrated aneurysm of the [place]. No demonstrated thrombus or occlusion or hemodynamically significant stenosis of the major intracranial arteries. 2. Mild plaque of the right carotid bulb and origin of the ICA. N.B. : The above Results were Read Back by Seth Langley MD to Susanna Mcdowell MD, and understanding confirmed on 09/11/2023 17:31:00 (ET). Electronically Signed: Seth Langley MD at 17:32 EDT , Brain CT 09/11/23 16:16 IMPRESSION: No acute intracranial findings. Electronically Signed: Zak Zapata MD at 16:35 EDT , ADDENDUM: 09/11/23 1644 IMPRESSION: No acute intracranial findings. N.B. : The above Results were Read Back by Zak Zapata MD to Susanna Mcdowell MD, and understanding confirmed on 09/11/2023 16:37:35 (ET). Electronically Signed: Zak Zapata MD at 16:35 EDT , Brain MRI 09/11/23 18:21 IMPRESSION: Acute ischemia in the high right parietal white matter. Electronically Signed: Zak Zapata MD at 21:46 EDT , ADDENDUM: 09/11/23 2231 IMPRESSION: Acute ischemia in the high right parietal white matter. N.B. : The above Results were Read Back by Zak Zapata MD to Ioana Rabago RN, and understanding confirmed on 09/11/2023 22:24:59 (ET). Electronically Signed: Zak Zapata MD at 21:46 EDT , Echocardiogram 09/11/23 18:21 Interpretation Summary Normal LV size. Left ventricular systolic function is normal. The left ventricular ejection fraction is 60 %. Bubble contrast study negative for right to left interatrial shunt. Structurally normal valves. Ordering Physician: Nasrin Leon Referring Physician: Darin Graham MD Performed By: Tabitha Iniguez RDCS and Student D/C Instructions Discharge Diet: No restrictions Weight Bearing Status: Full weight bearing Meaningful Use Info Meaningful Use Meaningful Use Diagnoses (Choose all that apply): Ischemic CVA CVA Therapy Assessed for PT,OT and/or ST?: Yes Ischemic Stroke Antithrombotic order at d/c?: Yes Dx of Atrial fib/flutter?: No Anticoagulant at discharge?: No Reason anticoagulant not ordered: Treatment not Indicated Statin Dosing Therapy Reference: STATIN DOSE THERAPY REFERENCE: * Patients > 75 years receive moderate or high dose statin therapy. * Patients 75 years or YOUNGER should receive HIGH intensity statin dose unless contraindicated. You will be required to document reason for non-treatment if statin daily dose does not meet guidelines. HIGH DOSE STATIN THERAPY DAILY Atorvastatin > than or = to 40 mg Rosuvastatin > than or = to 20 mg Amlodipine + Atorvastatin > than or = to 2.5/40 mg Ezetimibe + Simvastatin 10/80 mg Simvastatin 80mg Statins at discharge?: Yes If patient is 75 or younger, pt will be discharged on HIGH intensity statin.: Yes Primary Dx Acute Ischemic CVA?: Yes IV thrombolytic ordered during stay?: No Reason IV thrombolytic not ordered: Treatment not Indicated Discharge Plan Admission Admit Date/Time: 09/11/23 17:04 Primary Reason for Your Visit: RIGHT SIDED STROKE PARIETAL AREA Attending Provider: Herman Lopez Primary Care Provider: Darin Graham Consulting Providers: Burton Bansal; Tiffanie Max; Laura Stephens; Porsha Carrasco; Nithya Isbell; Ez Hawk; Johana Watts; Sav Hagen; Delfino Aleman; Edin Krause; Daisy Guerra; Rafi Ahmadi; Gabriella Jeffries; Nahun Moore; Delmi Ag; Harjit Lowe; Kaylyn Hawk; Andi Andre; Dea Varghese; Claire Rios; Nasrin Leon Instructions Additional Instructions / Restrictions: Avoid taking ibuprofen, Aleve, or Advil while taking aspirin and clopidogrel, use aspirin and clopidogrel for 90 days, then after that just take aspirin 81 mg daily in addition to your Lipitor Discharge Orders/Prescriptions Prescriptions: New clopidogrel [Plavix] 75 mg tablet 75 mg PO DAILY Qty: 30 2RF atorvastatin [Lipitor] 80 mg tablet 80 mg PO DAILY Qty: 30 2RF aspirin 81 mg tablet,delayed release (DR/EC) 81 mg PO DAILY Qty: 1 0RF Referrals / Follow Up: Darin Graham MD [Primary Care Provider] - See Referral Note (Within 2 to 3 weeks) Disposition Disposition (needs filled in before D/C Order can be placed): Home, Self Care Charges/Coding Visit Charges Inpatient E&M: 93458 Disch Hosp >30min
--- NOTE | 2023-09-12 13:26 | CASEMGMT ---
Order for DC placed. Pt 6-Click is 24. RN CM to pt room at this time. Pt SO at bedside. Pt states that he is independent and denies further needs at home. Pt denies the need for HHC or OP Tx. Pt states that he feels safe discharging home today and denies further questions or concerns.
[2023-09-12 13:29] VITALS: BMI 30.2
--- NOTE | 2023-09-12 13:43 | PHA.DC.MC.R ---
Pharmacy [facility] has performed discharge medication reconciliation and counseling for this patient. The patient's discharge medication list was reviewed for discrepancies and discrepancies were resolved. The patient was counseled on the following discharge medications and changes in medications for homegoing were reviewed. The Reason for Use, instructions for use, and potential side effects were reviewed for all new medications. The patient's questions regarding all of their medications were answered. 1. Aspirin 81 mg PO daily 2. Atorvastatin 80 mg PO daily 3. Clopidogrel 75 mg PO daily x 3 months The patient was able to verbally demonstrate an understanding of their discharge medications. Medications at Discharge Home Medications aspirin 81 mg tablet,delayed release 81 mg PO DAILY #1 TAB 09/12/23 atorvastatin 80 mg tablet (Lipitor) 80 mg PO DAILY #30 tabs 09/12/23 clopidogrel 75 mg tablet (Plavix) 75 mg PO DAILY #30 tabs 09/12/23
== END 2023-09-12 13:21 | disposition home or self-care (01) ==
LOC: ED 16:39 → PCU 17:32
PROVIDERS: Admitting Provider Family Medicine; Emergency Provider Emergency Medicine; PCP Family Medicine; Visit Provider Internal Medicine
DX: G45.9 Transient cerebral ischemic attack, unspecified (principal); R47.81 Slurred speech; R29.898 Other symptoms and signs involving the musculoskeletal system; F17.220 Nicotine dependence, chewing tobacco, uncomplicated; R29.810 Facial weakness; R03.0 Elevated blood-pressure reading, without diagnosis of hypertension; R07.89 Other chest pain; E87.6 Hypokalemia; E16.2 Hypoglycemia, unspecified; E66.9 Obesity, unspecified; E78.5 Hyperlipidemia, unspecified; Z68.30 Body mass index [BMI] 30.0-30.9, adult
CPT/HCPCS: 36415; 70450; 70496; 70498; 70551; 71045; 80048; 80053; 80061; 80307; 82962; 83036; 83735; 84443; 84484; 85025; 85610; 85730; 93005; 93306; 94668; 94762; 96360; 96361; 99221; 99285; J7030; Q9967; G0378

== ENCOUNTER → 2023-11-18 | Outpatient (CLI) | payer BC, SELFPAY ==
[2023-11-18 08:43] LABS: ALB/GLOB Ratio 1.1 RATIO (0.9-2.4); AST(SGOT) 28 U/L (15-37); Alanine Aminotransfer ALT/SGPT 42 U/L (16-61); Alkaline Phosphatase 128 U/L (45-117); Anion Gap 5 (5-15); BUN 21 mg/dL (7-18); BUN/Creat Ratio 19.1 RATIO (10-20); Calcium,Total 9.2 mg/dL (8.5-10.1); Chloride 109 mmol/L (98-107); Cholesterol 158 mg/dL (200); EST Glomerular Filtration Rate 72 mL/min (>60); Est Glom Filt Rate - Afr Amer 87 mL/min (>60); Globulin 3.6 g/dL (2.2-4.2); Glucose 92 mg/dL (74-106); High Density Lipoprotein 53 mg/dL; Potassium 4.6 mmol/L (3.5-5.1); Protein, Total 7.6 g/dL (6.4-8.2); Sodium Level 142 mmol/L (136-145); Triglycerides 109 mg/dL; Very Low Density Lipoprotein 22 mg/dL (5-40)
== END | disposition home or self-care (01) ==
LOC: LAB 07:22
PROVIDERS: PCP Family Medicine; Referring Provider Family Medicine; Visit Provider Family Medicine
DX: E78.5 Hyperlipidemia, unspecified (principal); Z12.5 Encounter for screening for malignant neoplasm of prostate
CPT/HCPCS: 36415; 80053; 80061; 84153; G0103

== ENCOUNTER → 2024-02-05 | Outpatient (CLI) | payer BC, SELFPAY ==
[2024-02-05 07:32] LABS: ALB/GLOB Ratio 1.1 RATIO (0.9-2.4); AST(SGOT) 30 U/L (15-37); Alanine Aminotransfer ALT/SGPT 45 U/L (16-61); Albumin, Serum 3.9 g/dL (3.2-5.0); Alkaline Phosphatase 127 U/L (45-117); Anion Gap 1 (5-15); BUN 22 mg/dL (7-18); BUN/Creat Ratio 22.9 RATIO (10-20); Calcium,Total 8.8 mg/dL (8.5-10.1); Chloride 108 mmol/L (98-107); Cholesterol 156 mg/dL (200); Creatinine, Serum 0.96 mg/dL (0.70-1.30); EST Glomerular Filtration Rate 84 mL/min (>60); Est Glom Filt Rate - Afr Amer 101 mL/min (>60); Globulin 3.5 g/dL (2.2-4.2); Glucose 91 mg/dL (74-106); High Density Lipoprotein 56 mg/dL; Potassium 4.4 mmol/L (3.5-5.1); Protein, Total 7.4 g/dL (6.4-8.2); Sodium Level 139 mmol/L (136-145); Triglycerides 77 mg/dL; Very Low Density Lipoprotein 15 mg/dL (5-40)
== END | disposition home or self-care (01) ==
LOC: LAB 06:17
PROVIDERS: PCP Family Medicine; Referring Provider Family Medicine; Visit Provider Family Medicine
DX: E78.5 Hyperlipidemia, unspecified (principal)
CPT/HCPCS: 36415; 80053; 80061

== ENCOUNTER → 2024-08-19 | Outpatient (CLI) | payer BC, SELFPAY ==
--- OUTSIDE RECORDS SUMMARY | 2024-08-19 06:48 | XMS RPT_ITS | CCD ---
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 Name Role Phone Darin Graham Attending Unavailable Darin Graham Primary Care Unavailable Darin Graham Referring Unavailable Kyle Licona Attending Unavailable Darin Graham Primary Care Unavailable Nasrin Leon Admitting Unavailable Burton Bansal Consulting Unavailable Nasrin Leon Attending Unavailable Darin Graham Primary Care Unavailable Adeli, Amir Consulting Unavailable Hinduja, Laura Consulting Unavailable Danilo, Porsha Consulting Unavailable Zha, Nithya Consulting Unavailable Carine, Ez Consulting Unavailable Mac, Johana Consulting Unavailable Bittar, Sav Consulting Unavailable Delfino Aleman Consulting Unavailable Edin Krause Consulting Unavailable Daisy Guerra Consulting Unavailable Rafi Ahmadi Consulting Unavailable Mervin, Gabriella Consulting Unavailable Ridha, Mohamed Consulting Unavailable Zaghlouleh, Mhd Ravin Consulting UnavailHarjit Bahena Consulting Unavailable Hawk, Rami Consulting Unavailable Thai, Andi Consulting Unavailable Dea Varghese Consulting Unavailable Claire Rios Consulting Unavailable Carolyn Nasrin L Consulting Unavailable Carolyn Nasrin L Admitting Unavailable Herman Lopez Attending Unavailable Burton Bansal Consulting Unavailable Darin Graham Primary Care Unavailable Adeli, Amir Consulting Unavailable Hinduja, Laura Consulting Unavailable Danilo, Porsha Consulting Unavailable Zha, Nithya Consulting Unavailable Carine, Ez Consulting Unavailable Mac, Johana Consulting Unavailable Bittar, Sav Consulting Unavailable Delfino Aleman Consulting Unavailable Edin Krause Consulting Unavailable Daisy Guerra Consulting Unavailable Rafi Ahmadi Consulting Unavailable Mervin, Gabriella Consulting Unavailable Ridha, Mohamed Consulting Unavailable Zaghlouleh, Mhd Ravin Consulting UnavailHarjit Bahena Consulting Unavailable Hawk, Rami Consulting Unavailable Thai, Andi Consulting Unavailable Abimael, Dea Consulting Unavailable Hannajonathan, Yousef Consulting Unavailable Nasrin Leon Consulting Unavailable Herman Lopez Consulting Unavailable Darin Graham Primary Care Unavailable Darin Graham Referring Unavailable Darin Graham Attending Unavailable Herman Lopez Attending Unavailable Burton Bansal Consulting Unavailable Nasrin Leon Admitting Unavailable Darin Graham Primary Care Unavailable Adecurt, Amir Consulting Unavailable Hinduryan, Laura Consulting Unavailable Danilo, Porsha Consulting Unavailable Zha, Nithya Consulting Unavailable Carine, Ez Consulting Unavailable Mac, Johana Consulting Unavailable BitSav evans Consulting Unavailable Delfino Aleman Consulting Unavailable Edin Krause Consulting Unavailable Daisy Guerra Consulting Unavailable Rafi Ahmadi Consulting Unavailable Gabriella Jeffries Consulting Unavailable Nahun Moore Consulting Unavailable Delmi Ag Consulting UnavailHarjit Bahena Consulting Unavailable Hawk, Rami Consulting Unavailable Thai, Andi Consulting Unavailable Abimael, Dea Consulting Unavailable Hannawi, Yousef Consulting Unavailable Nasrin Leon Consulting Unavailable Problems Active Problems Problem Classification Problem Date Documented Da te Episodic/Chronic Disorders of lipid metabolism (1 source) Hyperlipidemia, unspecified; Translations: [Hyperlipidemia, unspecified] Onset: 03-07-2024 Chronic Transient cerebral ischemia (1 source) Transient cerebral ischemic attack, unspecified; Translations: [Transient cerebral ischemic attack, unspecified] Onset: 09-12-2023 Chronic Past or Other Problems Problem Classification Problem Date Documented Da te Episodic/Chronic Other nervous system disorders (1 source) Slurred speech; Translations: [Slurred speech] Onset: 09-29-2023 Episodic Results Test Name Value Interpretation Reference Range Facil ity Comprehensive Metabolic Prof nclucian 02-05-2024 Albumin [Mass/Vol] 3.9 g/dL Normal 3.2-5.0 [facility] Comment on above: Order Comment: Order Date: 10/18/23 Order Info: 0786-1 - CMP Order Info: [id number] - LIPID Order Info: 2857-1 - PSA Performed By: #### L 500.4050, L500.4100 #### [facility] [place], [place], [id number] Albumin/Globulin [Mass ratio] 1.1 {ratio} Normal 0.9-2.4 [facility] Comment on above: Order Comment: Order Date: 10/18/23 Order Info: 785-1 - CMP Order Info: [id number] - LIPID Order Info: [id number] - PSA Performed By: #### L 500.4050, L500.4100 #### [facility] [address] [place], [address] ALK P 127 U/L High 45-117 [facility] Comment on above: Order Comment: Order Date: 10/18/23 Order Info: 785- - CMP Order Info: - LIPID Order Info: [id number] - PSA Performed By: #### L 500.4050, L500.4100 #### [facility] [address] [place], [address] ALT [Catalytic activity/Vol] 45 U/L Normal 16-61 [facility] Comment on above: Order Comment: Order Date: 10/18/23 Order Info: 785-02 - CMP Order Info: - LIPID Order Info: [id number] - PSA Performed By: #### L 500.4050, L500.4100 #### [facility] [address] [place], [address] AST [Catalytic activity/Vol] 30 U/L Normal 15-37 [facility] Comment on above: Order Comment: Order Date: 10/18/23 Order Info: 785-1 - CMP Order Info: [id number] - LIPID Order Info: [id number] - PSA Performed By: #### L 500.4050, L500.4100 #### [facility] [address] [place], [address] Bilirubin [Mass/Vol] 0.40 mg/dL Normal 0.20-1.00 [facility] Comment on above: Order Comment: Order Date: 10/18/23 Order Info: 86-1 - CMP Order Info: - LIPID Order Info: [id number] - PSA Result Comment: For patients on eltrombopag therapy, use of Dimension Barre TBIL is not recommended. Performed By: #### L 500.4050, L500.4100 #### [facility] [address] [place], [address] BUN/CRE 22.9 RATIO High 10-20 [facility] Comment on above: Order Comment: Order Date: 10/18/23 Order Info: 785- - CMP Order Info: - LIPID Order Info: [id number]- - PSA Performed By: #### L 500.4050, L500.4100 #### [facility] [address] [place], [address] CA,Total 8.8 mg/dL Normal 8.5-10.1 [facility] Comment on above: Order Comment: Order Date: 10/18/23 Order Info: 785-02 - CMP Order Info: - LIPID Order Info: [id number] - PSA Performed By: #### L 500.4050, L500.4100 #### [facility] [address] [place], [address] Chloride [Moles/Vol] 108 mmol/L High 98-107 [facility] Comment on above: Order Comment: Order Date: 10/18/23 Order Info: 785-02 - CMP Order Info: - LIPID Order Info: [id number] - PSA Performed By: #### L 500.4050, L500.4100 #### [facility] [address] [place], [address] CO2 [Moles/Vol] 30.0 mmol/L Normal 21.0-32.0 [facility] Comment on above: Order Comment: Order Date: 10/18/23 Order Info: 785- - CMP Order Info: - LIPID Order Info: 7-1 - PSA Performed By: #### L 500.4050, L500.4100 #### [facility] [address] [place], [address] Creatinine [Mass/Vol] 0.96 mg/dL Normal 0.70-1.30 [facility] Comment on above: Order Comment: Order Date: 10/18/23 Order Info: 785-1 - CMP Order Info: [id number] - LIPID Order Info: 1 - PSA Result Comment: The validity of the calculated GFR GFRAA in patients over 70 years has not been determined. Clinical correlation is essential. Performed By: #### L 500.4050, L500.4100 #### [facility] [address] [place], [place], [id number] EST GFR - AA 101 mL/min Normal >60 [facility] Comment on above: Order Comment: Order Date: 10/18/23 Order Info: 785-02 - CMP Order Info: - LIPID Order Info: [id number] - PSA Result Comment: Afri can Palestinian GFR Calc Performed By: #### L 500.4050, L500.4100 #### [facility] [address] [place], [address] GAP 1 Low 5-15 [facility] Comment on above: Order Comment: Order Date: 10/18/23 Order Info: 07 - CMP Order Info: [id number] - LIPID Order Info: 1 - PSA Performed By: #### L 500.4050, L500.4100 #### [facility] [address] [place], [address] GFR/1.73 sq M.predicted among non-blacks MDRD (S/P/Bld) [Vol rate/Area] 84 mL/min/{1.73_m2} Normal >60 [facility] Comment on above: Order Comment: Order Date: 10/18/23 Order Info: 07-1 - CMP Order Info: [id number] - LIPID Order Info: 2851 - PSA Result Comment: Non- GFR Calc Performed By: #### L 500.4050, L500.4100 #### [facility] [address] [place], [address] Globulin (S) [Mass/Vol] 3.5 g/dL Normal 2.2-4.2 [facility] Comment on above: Order Comment: Order Date: 10/18/23 Order Info: 785-02 - CMP Order Info: - LIPID Order Info: [id number] - PSA Performed By: #### L 500.4050, L500.4100 #### [facility] [address] [place], [address] Glucose [Mass/Vol] 91 mg/dL Normal 74-106 [facility] Comment on above: Order Comment: Order Date: 10/18/23 Order Info: 785-02 - CMP Order Info: - LIPID Order Info: [id number] - PSA Performed By: #### L 500.4050, L500.4100 #### [facility] [address] [place], [address] Potassium [Moles/Vol] 4.4 mmol/L Normal 3.5-5.1 [facility] Comment on above: Order Comment: Order Date: 10/18/23 Order Info: 785-02 - CMP Order Info: - LIPID Order Info: [id number] - PSA Performed By: #### L 500.4050, L500.4100 #### [facility] [address] [place], [address] Sodium [Moles/Vol] 139 mmol/L Normal 136-145 [facility] Comment on above: Order Comment: Order Date: 10/18/23 Order Info: 785-02 - CMP Order Info: - LIPID Order Info: [id number] - PSA Performed By: #### L 500.4050, L500.4100 #### [facility] [address] [place], [address] T PROT 7.4 g/dL Normal 6.4-8.2 [facility] Comment on above: Order Comment: Order Date: 10/18/23 Order Info: 0786-1 - CMP Order Info: [id number] - LIPID Order Info: [id number] - PSA Performed By: #### L 500.4050, L500.4100 #### [facility] [address] [place], [place], [address] Urea nitrogen [Mass/Vol] 22 mg/dL High 7-18 [facility] Comment on above: Order Comment: Order Date: 10/18/23 Order Info: 0786 - CMP Order Info: [id number] - LIPID Order Info: [id number] - PSA Performed By: #### L 500.4050, L500.4100 #### [facility] [address] [place], [address] Lipid Profileon 02-05-2024 Cholesterol [Mass/Vol] 156 mg/dL Normal 200 [facility] Comment on above: Order Comment: Order Date: 02/01/24 Order Info: 0786 - CMP Order Info: [id number] - LIPID Result Comment: <200 mg/dL Desirable 200-240 mg/dL Borderline >240 mg/dL High Risk Performed By: #### L 500.4100 #### [facility] [address] [place], [place], [address] Cholesterol in HDL [Mass/Vol] 56 mg/dL Normal [facility] Comment on above: Order Comment: Order Date: 02/01/24 Order Info: 0786- - CMP Order Info: [id number] - LIPID Result Comment: The drugs N-Acetylcysteine and Metamizole may falsely depress this assay. Reference Range HDL <40 mg/dL Low HDL Cholesterol HDL >or= 60 mg/dL High HDL Cholesterol Performed By: #### L 500.4100 #### [facility] [address] [place], [place], [address] Cholesterol in LDL [Mass/Vol] 85 mg/dL Normal 0-130 [facility] Comment on above: Order Comment: Order Date: 02/01/24 Order Info: 785-02 - CMP Order Info: - LIPID Performed By: #### L 500.4100 #### [facility] [address] [place], [place], [id number] Cholesterol in VLDL [Mass/Vol] 15 mg/dL Normal 5-40 [facility] Comment on above: Order Comment: Order Date: 02/01/24 Order Info: 785-02 - CMP Order Info: - LIPID Performed By: #### L 500.4100 #### [facility] [address] [place], [place], [address] Triglyceride [Mass/Vol] 77 mg/dL Normal [facility] Comment on above: Order Comment: Order Date: 02/01/24 Order Info: 785-02 - CMP Order Info: - LIPID Result Comment: The drugs N-Acetylcysteine and Metamizole may falsely depress this assay. Serum Triglycerides Reference Interval Normal <150 mg/dL Borderline high 150 - 199 mg/dL High 200 - 499 mg/dL Very High > or = 500 mg/dL Performed By: #### L 500.4100 #### [facility] [address] [place], [place], [address] Comprehensive Metabolic Prof [facility] 11-18-2023 Albumin [Mass/Vol] 4.0 g/dL Normal 3.2-5.0 [facility] Comment on above: Order Comment: Order Date: 10/18/23 Order Info: 785-02 - CMP Order Info: [id number] - LIPID Order Info: [id number] - PSA Performed By: #### L 500.4050, L500.4100 #### [facility] [address] [place], [place], [address] Albumin/Globulin [Mass ratio] 1.1 {ratio} Normal 0.9-2.4 [facility] Comment on above: Order Comment: Order Date: 10/18/23 Order Info: 785-02 - CMP Order Info: - LIPID Order Info: [id number] - PSA Performed By: #### L 500.4050, L500.4100 #### [facility] [address] [place], [address] ALK P 128 U/L High 45-117 [facility] Comment on above: Order Comment: Order Date: 10/18/23 Order Info: 785-02 - CMP Order Info: - LIPID Order Info: [id number] - PSA Performed By: #### L 500.4050, L500.4100 #### [facility] [address] [place], [address] ALT [Catalytic activity/Vol] 42 U/L Normal 16-61 [facility] Comment on above: Order Comment: Order Date: 10/18/23 Order Info: 785-02 - CMP Order Info: - LIPID Order Info: [id number] - PSA Performed By: #### L 500.4050, L500.4100 #### [facility] [address] [place], [address] AST [Catalytic activity/Vol] 28 U/L Normal 15-37 [facility] Comment on above: Order Comment: Order Date: 10/18/23 Order Info: 785-02 - CMP Order Info: - LIPID Order Info: [id number] - PSA Performed By: #### L 500.4050, L500.4100 #### [facility] [address] [place], [address] Bilirubin [Mass/Vol] 0.60 mg/dL Normal 0.20-1.00 [facility] Comment on above: Order Comment: Order Date: 10/18/23 Order Info: 785- - CMP Order Info: - LIPID Order Info: [id number] - PSA Result Comment: For patients on eltrombopag therapy, use of Dimension Barre TBIL is not recommended. Performed By: #### L 500.4050, L500.4100 #### [facility] [address] [place], [address] BUN/CRE 19.1 RATIO Normal 10-20 [facility] Comment on above: Order Comment: Order Date: 10/18/23 Order Info: 86-1 - CMP Order Info: [id number] - LIPID Order Info: [id number] - PSA Performed By: #### L 500.4050, L500.4100 #### [facility] [address] [place], [address] CA,Total 9.2 mg/dL Normal 8.5-10.1 [facility] Comment on above: Order Comment: Order Date: 10/18/23 Order Info: 785- - CMP Order Info: - LIPID Order Info: [id number] - PSA Performed By: #### L 500.4050, L500.4100 #### [facility] [address] [place], [address] Chloride [Moles/Vol] 109 mmol/L High 98-107 [facility] Comment on above: Order Comment: Order Date: 10/18/23 Order Info: 785-02 - CMP Order Info: [id number] - LIPID Order Info: [id number] - PSA Performed By: #### L 500.4050, L500.4100 #### [facility] [address] [place], [address] CO2 [Moles/Vol] 28.0 mmol/L Normal 21.0-32.0 [facility] Comment on above: Order Comment: Order Date: 10/18/23 Order Info: 785-1 - CMP Order Info: [id number] - LIPID Order Info: [id number] - PSA Performed By: #### L 500.4050, L500.4100 #### [facility] [address] [place], [address] Creatinine [Mass/Vol] 1.10 mg/dL Normal 0.70-1.30 [facility] Comment on above: Order Comment: Order Date: 10/18/23 Order Info: 07 - CMP Order Info: [id number] - LIPID Order Info: [id number] - PSA Result Comment: The validity of the calculated GFR GFRAA in patients over 70 years has not been determined. Clinical correlation is essential. Performed By: #### L 500.4050, L500.4100 #### [facility] [address] [place], [address] EST GFR - AA 87 mL/min Normal >60 [facility] Comment on above: Order Comment: Order Date: 10/18/23 Order Info: 785- - CMP Order Info: [id number] - LIPID Order Info: [id number] - PSA Result Comment: Afri can Palestinian GFR Calc Performed By: #### L 500.4050, L500.4100 #### [facility] [address] [place], [address] GAP 5 Normal 5-15 [facility] Comment on above: Order Comment: Order Date: 10/18/23 Order Info: 785-02 - CMP Order Info: [id number] - LIPID Order Info: [id number] - PSA Performed By: #### L 500.4050, L500.4100 #### [facility] [address] [place], [address] GFR/1.73 sq M.predicted among non-blacks MDRD (S/P/Bld) [Vol rate/Area] 72 mL/min/{1.73_m2} Normal >60 [facility] Comment on above: Order Comment: Order Date: 10/18/23 Order Info: 07 - CMP Order Info: [id number] - LIPID Order Info: [id number] - PSA Result Comment: Non- GFR Calc Performed By: #### L 500.4050, L500.4100 #### [facility] [address] [place], [address] Globulin (S) [Mass/Vol] 3.6 g/dL Normal 2.2-4.2 [facility] Comment on above: Order Comment: Order Date: 10/18/23 Order Info: 86-1 - CMP Order Info: [id number] - LIPID Order Info: 285-1 - PSA Performed By: #### L 500.4050, L500.4100 #### [facility] [address] [place], [address] Glucose [Mass/Vol] 92 mg/dL Normal 74-106 [facility] Comment on above: Order Comment: Order Date: 10/18/23 Order Info: 86- - CMP Order Info: - LIPID Order Info: 7-1 - PSA Performed By: #### L 500.4050, L500.4100 #### [facility] [address] [place], [address] Potassium [Moles/Vol] 4.6 mmol/L Normal 3.5-5.1 [facility] Comment on above: Order Comment: Order Date: 10/18/23 Order Info: 785-02 - CMP Order Info: [id number] - LIPID Order Info: 7-1 - PSA Performed By: #### L 500.4050, L500.4100 #### [facility] [address] [place], [address] Sodium [Moles/Vol] 142 mmol/L Normal 136-145 [facility] Comment on above: Order Comment: Order Date: 10/18/23 Order Info: 785-02 - CMP Order Info: - LIPID Order Info: [id number] - PSA Performed By: #### L 500.4050, L500.4100 #### [facility] [address] [place], [address] T PROT 7.6 g/dL Normal 6.4-8.2 [facility] Comment on above: Order Comment: Order Date: 10/18/23 Order Info: 785-1 - CMP Order Info: [id number] - LIPID Order Info: [id number] - PSA Performed By: #### L 500.4050, L500.4100 #### [facility] [address] [place], [address] Urea nitrogen [Mass/Vol] 21 mg/dL High 7-18 [facility] Comment on above: Order Comment: Order Date: 10/18/23 Order Info: 785-02 - CMP Order Info: - LIPID Order Info: [id number] - PSA Performed By: #### L 500.4050, L500.4100 #### [facility] [address] [place], [address] Lipid Profileon 11-18-2023 Cholesterol [Mass/Vol] 158 mg/dL Normal 200 [facility] Comment on above: Order Comment: Order Date: 10/18/23 Order Info: 785-02 - CMP Order Info: - LIPID Order Info: [id number] - PSA Result Comment: <200 mg/dL Desirable 200-240 mg/dL Borderline >240 mg/dL High Risk Performed By: #### L 500.4050, L500.4100 #### [facility] [address] [place], [address] Cholesterol in HDL [Mass/Vol] 53 mg/dL Normal [facility] Comment on above: Order Comment: Order Date: 10/18/23 Order Info: 785-02 - CMP Order Info: - LIPID Order Info: [id number] - PSA Result Comment: The drugs N-Acetylcysteine and Metamizole may falsely depress this assay. Reference Range HDL <40 mg/dL Low HDL Cholesterol HDL >or= 60 mg/dL High HDL Cholesterol Performed By: #### L 500.4050, L500.4100 #### [facility] [address] [place], [address] Cholesterol in LDL [Mass/Vol] 83 mg/dL Normal 0-130 [facility] Comment on above: Order Comment: Order Date: 10/18/23 Order Info: 785-02 - CMP Order Info: - LIPID Order Info: [id number] - PSA Performed By: #### L 500.4050, L500.4100 #### [facility] [address] [place], [address] Cholesterol in VLDL [Mass/Vol] 22 mg/dL Normal 5-40 [facility] Comment on above: Order Comment: Order Date: 10/18/23 Order Info: 785-02 - CMP Order Info: - LIPID Order Info: [id number] - PSA Performed By: #### L 500.4050, L500.4100 #### [facility] [address] [place], [address] Triglyceride [Mass/Vol] 109 mg/dL Normal [facility] Comment on above: Order Comment: Order Date: 10/18/23 Order Info: 785-02 - CMP Order Info: - LIPID Order Info: [id number] - PSA Result Comment: The drugs N-Acetylcysteine and Metamizole may falsely depress this assay. Serum Triglycerides Reference Interval Normal <150 mg/dL Borderline high 150 - 199 mg/dL High 200 - 499 mg/dL Very High > or = 500 mg/dL Performed By: #### L 500.4050, L500.4100 #### [facility] [address] [place], [address] PSA,Total - Annual Screenon 11-18-2023 PSA,TOT SCREEN 0.30 ng/mL Normal 0.00-4.00 [facility] Comment on above: Order Comment: Order Date: 10/18/23 Order Info: 785-02 - CMP Order Info: - LIPID Order Info: [id number] - PSA Result Comment: This test was performed using the TPSA assay method for the [employer] chemistry system. Values obtained with different assay methods cannot be used interchangably. When changing PSA assays in the course of monitoring a patient, additional sequential testing should be carried out to confirm baseline values. Performed By: #### L 501.9910 #### [facility] [address] [place], [address] CBC W/Diff, Automatedon 07-2 Absolute Lymph 1.55 X10 3/uL Normal 0.83-4.51 [facility] Comment on above: Performed By: #### L 501.9910 #### [facility] [address] [place], [address] Absolute Neut 3.1 X10 3/uL Normal 2.0-7.7 [facility] Comment on above: Performed By: #### L 501.9910 #### [facility] [address] [place], [address] Basophils/100 WBC (Bld) 0.9 % Normal 0-1 [facility] Comment on above: Performed By: #### L 501.9910 #### [facility] [address] [place], [address] Eosinophils/100 WBC (Bld) 3.5 % Normal 0-5 [facility] Comment on above: Performed By: #### L 501.9910 #### [facility] [address] [place], [address] Erythrocyte distribution width (RBC) [Ratio] 12.5 % Normal 11.6-14.6 [facility] Comment on above: Performed By: #### L 501.9910 #### [facility] [address] [place], [address] Hematocrit (Bld) [Volume fraction] 44.0 % Normal 40-54 [facility] Comment on above: Performed By: #### L 501.9910 #### [facility] [address] [place], [address] Hemoglobin (Bld) [Mass/Vol] 14.3 g/dL Normal 13.0-16.5 [facility] Comment on above: Performed By: #### L 501.9910 #### [facility] [address] [place], [address] IG% 0.200 Normal 0.0-0.9 [facility] Comment on above: Result Comment: IG% - Immature Granulocytes (promyelocytes, myelocytes and metamyelocytes) > 1% indicates that a LEFT SHIFT is Present. Performed By: #### L 501.9910 #### [facility] [address] [place], [address] Lymphocytes/100 WBC (Bld) 28.3 % Normal 19-41 [facility] Comment on above: Performed By: #### L 501.9910 #### [facility] [address] [place], [address] MCH (RBC) [Entitic mass] 28.7 pg Normal 27.0-32.0 [facility] Comment on above: Performed By: #### L 501.9910 #### [facility] [address] [place], [address] MCHC (RBC) [Mass/Vol] 32.5 g/dL Normal 32-36 [facility] Comment on above: Performed By: #### L 501.9910 #### [facility] [address] [place], [address] MCV (RBC) [Entitic vol] 88.2 fL Normal 80-94 [facility] Comment on above: Performed By: #### L 501.9910 #### [facility] [address] [place], [address] Monocytes/100 WBC (Bld) 10.0 % Normal 0-10 [facility] Comment on above: Performed By: #### L 501.9910 #### [facility] [address] [place], [address] Neutrophils/100 WBC (Bld) 57.1 % Normal 47-70 [facility] Comment on above: Performed By: #### L 501.9910 #### [facility] [address] [place], [address] Nucleated RBC (Bld) [#/Vol] 0 10*3/uL Normal 0-5 [facility] Comment on above: Performed By: #### L 501.9910 #### [facility] [address] [place], [address] Platelet mean volume (Bld) [Entitic vol] 10.1 fL Normal 6.2-12.0 [facility] Comment on above: Performed By: #### L 501.9910 #### [facility] [address] [place], [address] Platelets (Bld) [#/Vol] 235 10*3/uL Normal 150-450 [facility] Comment on above: Performed By: #### L 501.9910 #### [facility] [address] [place], [address] RBC (Bld) [#/Vol] 4.99 10*6/uL Normal 4.6-6.2 [facility] Comment on above: Performed By: #### L 501.9910 #### [facility] [address] [place], [address] RDW SD 40.7 fl Normal 35.1-43.9 [facility] Comment on above: Performed By: #### L 501.9910 #### [facility] [address] [place], [address] WBC (Bld) [#/Vol] 5.5 10*3/uL Normal 4.4-11.0 [facility] Comment on above: Performed By: #### L 501.9910 #### [facility] [address] [place], [address] Comprehensive Metabolic Prof [facility] 09-12-2023 Albumin [Mass/Vol] 3.5 g/dL Normal 3.2-5.0 [facility] Comment on above: Performed By: #### L 501.9910 #### [facility] [address] [place], [address] Albumin/Globulin [Mass ratio] 1.0 {ratio} Normal 0.9-2.4 [facility] Comment on above: Performed By: #### L 501.9910 #### [facility] [address] [place], [address] ALK P 124 U/L High 45-117 [facility] Comment on above: Performed By: #### L 501.9910 #### [facility] [address] [place], [address] ALT [Catalytic activity/Vol] 33 U/L Normal 16-61 [facility] Comment on above: Performed By: #### L 501.9910 #### [facility] [address] [place], [address] AST [Catalytic activity/Vol] 24 U/L Normal 15-37 [facility] Comment on above: Performed By: #### L 501.9910 #### [facility] [address] [place], [address] Bilirubin [Mass/Vol] 0.30 mg/dL Normal 0.20-1.00 [facility] Comment on above: Result Comment: For patients on eltrombopag therapy, use of Dimension Barre TBIL is not recommended. Performed By: #### L 501.9910 #### [facility] [address] [place], [address] BUN/CRE 16.0 RATIO Normal 10-20 [facility] Comment on above: Performed By: #### L 501.9910 #### [facility] [address] [place], [address] CA,Total 8.4 mg/dL Low 8.5-10.1 [facility] Comment on above: Performed By: #### L 501.9910 #### [facility] [address] [place], [address] Chloride [Moles/Vol] 108 mmol/L High 98-107 [facility] Comment on above: Performed By: #### L 501.9910 #### [facility] [address] [place], [address] CO2 [Moles/Vol] 26.0 mmol/L Normal 21.0-32.0 [facility] Comment on above: Performed By: #### L 501.9910 #### [facility] [address] [place], [address] Creatinine [Mass/Vol] 1.06 mg/dL Normal 0.70-1.30 [facility] Comment on above: Result Comment: The validity of the calculated GFR GFRAA in patients over 70 years has not been determined. Clinical correlation is essential. Performed By: #### L 501.9910 #### [facility] [address] [place], [address] ECRCL 87.78 ml/min Normal [facility] Comment on above: Performed By: #### L 501.9910 #### [facility] [address] [place], [address] EST GFR - AA 91 mL/min Normal >60 [facility] Comment on above: Result Comment: Afri can Palestinian GFR Calc Performed By: #### L 501.9910 #### [facility] [address] [place], [address] GAP 5 Normal 5-15 [facility] Comment on above: Performed By: #### L 501.9910 #### [facility] [address] [place], [address] GFR/1.73 sq M.predicted among non-blacks MDRD (S/P/Bld) [Vol rate/Area] 75 mL/min/{1.73_m2} Normal >60 [facility] Comment on above: Result Comment: Non- GFR Calc Performed By: #### L 501.9910 #### [facility] [address] [place], [address] Globulin (S) [Mass/Vol] 3.5 g/dL Normal 2.2-4.2 [facility] Comment on above: Performed By: #### L 501.9910 #### [facility] [address] [place], [address] Glucose [Mass/Vol] 97 mg/dL Normal 74-106 [facility] Comment on above: Performed By: #### L 501.9910 #### [facility] [address] [place], [address] Potassium [Moles/Vol] 4.4 mmol/L Normal 3.5-5.1 [facility] Comment on above: Performed By: #### L 501.9910 #### [facility] [address] [place] [place], [address] Sodium [Moles/Vol] 139 mmol/L Normal 136-145 [facility] Comment on above: Performed By: #### L 501.9910 #### [facility] [address] [place], [address] T PROT 7.0 g/dL Normal 6.4-8.2 [facility] Comment on above: Performed By: #### L 501.9910 #### [facility] [address] [place], [address] Urea nitrogen [Mass/Vol] 17 mg/dL Normal 7-18 [facility] Comment on above: Performed By: #### L 501.9910 #### [facility] [address] [place], [address] Discharge Instructionon 08-21 Discharge Instruction [facility] Medical Records Department [address] [place] [address] Instructions for Home/Discharge Instructions 09/12/23 1316 MR#: [id number] Acct: [id number] Name: LIZ HENSLEY Rep #: [id number] : 1960 62 From: Herman Lopez DO PCP: Dr. Darin Graham MD Status:ADM UDDLEY Discharge Instructions Diet Discharge Diet: No restrictions Activity Discharge Activity: Return to Normal Activity Weight Bearing Status: Full weight bearing Follow Up Care Test Results: Test results from this visit will be discussed in further detail at your follow-up appointment, if applicable. Discharge Plan Admission Admit Date/Time: 09/11/23 17:04 Primary Reason for Your Visit: RIGHT SIDED STROKE PARIETAL AREA Attending Provider: Herman Lopez Primary Care Provider: Darin Graham Consulting Providers: Burton Bansal; Tiffanie Max; Laura Stephens; Porsha Carrasco; Nithya Isbell; Ez Hawk; Johana Watts; Sav Hagen; Delfino Aleman; Edin Krause; Daisy Guerra; Rafi Ahmadi; Gabriella Jeffries; Nahun Moore; Delmi Ag; Harjit Lowe; Kaylyn Hawk; Andi Andre; Dea Varghese; Claire Rios; Nasrin Leon Instructions Additional Instructions / Restrictions: Avoid taking ibuprofen, Aleve, or Advil while taking aspirin and clopidogrel, use aspirin and clopidogrel for 90 days, then after that just take aspirin 81 mg daily in addition to your Lipitor Discharge Orders/Prescriptions Prescriptions: New clopidogrel [Plavix] 75 mg tablet 75 mg PO DAILY Qty: 30 2RF atorvastatin [Lipitor] 80 mg tablet 80 mg PO DAILY Qty: 30 2RF aspirin 81 mg tablet,delayed release (DR/EC) 81 mg PO DAILY Qty: 1 0RF Referrals / Follow Up: Darin Graham MD [Primary Care Provider] - See Referral Note (Within 2 to 3 weeks) Disposition Disposition (needs filled in before D/C Order can be placed): Home, Self Care 09/12/23 1321 Herman Lopez DO CC: Porsha Carrasco; Gabriella Jeffries; Harjit Lowe; Nithya Isbell MD; Laura Stephens MD; Burton Bansal MD; Dr. Tiffanie Max MD; Dr. Nasrin Leon MD; Dr. Darin Graham MD; Dr. Ez Hawk MD; Dr. Johana Watts MD; Dr. Delfino Aleman MD; Dr. Sav Hagen MD; Dr. Edin Krause MD; Dr. Rafi Ahmadi DO; Dr. Delmi Ag MD; Dr. Nahun Moore MD; Dr. Kaylyn Hawk MD; Dr. Andi Andre MD; Dr. Dea Varghese MD; Daisy Guerra DO; Claire Rios MD Signed Normal [facility] Hemoglobin A1con 09-12-2023 HbA1c (Bld) [Mass fraction] 5.4 % Normal 3.8-5.6 [facility] Comment on above: Result Comment: Norm al < 5.7 % Prediabetic 5.7 - 6.4 % Diabetic >or= 6.5 % Please note range changes. Performed By: #### L 501.9910 #### [facility] [address] [place], [address] Lipid Profileon 09-12-2023 Cholesterol [Mass/Vol] 236 mg/dL High 200 [facility] Comment on above: Result Comment: <200 mg/dL Desirable 200-240 mg/dL Borderline >240 mg/dL High Risk Performed By: #### L 501.9910 #### [facility] [address] [place], [address] Cholesterol in HDL [Mass/Vol] 44 mg/dL Normal [facility] Comment on above: Result Comment: The drugs N-Acetylcysteine and Metamizole may falsely depress this assay. Reference Range HDL <40 mg/dL Low HDL Cholesterol HDL >or= 60 mg/dL High HDL Cholesterol Performed By: #### L 501.9910 #### [facility] [address] [place], [address] Cholesterol in LDL [Mass/Vol] 163 mg/dL High 0-130 [facility] Comment on above: Performed By: #### L 501.9910 #### [facility] [address] [place], [address] Cholesterol in VLDL [Mass/Vol] 29 mg/dL Normal 5-40 [facility] Comment on above: Performed By: #### L 501.9910 #### [facility] [address] [place], [address] Triglyceride [Mass/Vol] 146 mg/dL Normal [facility] Comment on above: Result Comment: The drugs N-Acetylcysteine and Metamizole may falsely depress this assay. Serum Triglycerides Reference Interval Normal <150 mg/dL Borderline high 150 - 199 mg/dL High 200 - 499 mg/dL Very High > or = 500 mg/dL Performed By: #### L 501.9910 #### [facility] [address] [place], [address] Thyroid Stim Hormone (TSH)on 09-12-2023 TSH 2.23 uIU/mL Normal 0.358-3.74 [facility] Comment on above: Performed By: #### L 501.9910 #### [facility] [address] [place], [address] Urine Drug Screen (VISTA)on 09-12-2023 AMPHETAMINES Negative Normal <1000 ng/mL [facility] Comment on above: Performed By: #### L 500.4050, L500.4100 #### [facility] [address] [place], [address] BARBITIURATES Negative Normal < 200 ng/mL [facility] Comment on above: Performed By: #### L 500.4050, L500.4100 #### [facility] [address] [place], [address] BENZODIAZIPINE Negative Normal < 200 ng/mL [facility] Comment on above: Performed By: #### L 500.4050, L500.4100 #### [facility] [address] [place], [address] COCAINE Negative Normal < 300 ng/mL [facility] Comment on above: Performed By: #### L 500.4050, L500.4100 #### [facility] [address] [place], [address] ECSTACY Negative Normal < 500 ng/mL [facility] Comment on above: Performed By: #### L 500.4050, L500.4100 #### [facility] [address] [place], [address] METHADONE Negative Normal < 300 ng/mL [facility] Comment on above: Performed By: #### L 500.4050, L500.4100 #### [facility] [address] [place], [address] OPIATES Negative Normal < 300 ng/mL [facility] Comment on above: Performed By: #### L 500.4050, L500.4100 #### [facility] [address] [place], [address] PCP Negative Normal < 25 ng/mL [facility] Comment on above: Performed By: #### L 500.4050, L500.4100 #### [facility] [address] [place], [address] THC Negative Normal < 50 ng/mL [facility] Comment on above: Performed By: #### L 500.4050, L500.4100 #### [facility] [address] [place], [address] VISTA UDS PH 5 Normal [facility] Comment on above: Performed By: #### L 500.4050, L500.4100 #### [facility] [address] [place], [address] 12 Lead EKGon 07-22-2024 12 Lead EKG [facility] [address] [place] [address] 12 Lead EKG 09/11/23 1638 MR#: [id number] Acct: [id number] Name: LIZ HENSLEY Rep #: [id number] : 1960 62 From: Kyle Licona MD Attending Dr: Dr. Herman Lopez DO Status: A DM DUDLEY Ordering Dr: Susanna Mcdowell MD Date: 09/11/23 Location: [facility] Sex: M C Admitted: 09/11/23 Test Reason : STROKE Blood Pressure : / mmHG Vent. Rate : 085 BPM Atrial Rate : 085 BPM P-R Int : 148 ms QRS Dur : 100 ms QT Int : 376 ms P-R-T Axes : 062 -02 039 degrees QTc Int : 447 ms Normal sinus rhythm Incomplete right bundle branch block Nonspecific ST abnormality Abnormal ECG Confirmed by HEATHER SAWYER, KYLE ([id number]), editorial manager SHERINE RIOS ([id number]) on 09/12/2023 8:38:00 AM Referred By: Confirmed By:KYLE LICONA MD 09/12/23 0838 Date Kyle Licona MD CC: Dr. Darin Graham MD; Dr. Susanna Mcdowell MD; Dr. Herman Lopez DO Signed Normal [facility] Basic Metabolic Profile (BMP )on 09-11-2023 BUN/CRE 15.6 RATIO Normal 10-20 [facility] Comment on above: Order Comment: 'TROP ' Serial specimen #1, #2 or #3: 1 Performed By: #### L 500.2500, L501.4020, L300.4310, L100.0100, L300.3900 #### [facility] [address] [place], [address] CA,Total 9.5 mg/dL Normal 8.5-10.1 [facility] Comment on above: Order Comment: 'TROP ' Serial specimen #1, #2 or #3: 1 Performed By: #### L 500.2500, L501.4020, L300.4310, L100.0100, L300.3900 #### [facility] [address] [place], [address] Chloride [Moles/Vol] 106 mmol/L Normal 98-107 [facility] Comment on above: Order Comment: 'TROP ' Serial specimen #1, #2 or #3: 1 Performed By: #### L 500.2500, L501.4020, L300.4310, L100.0100, L300.3900 #### [facility] [address] [place], [address] CO2 [Moles/Vol] 28.0 mmol/L Normal 21.0-32.0 [facility] Comment on above: Order Comment: 'TROP ' Serial specimen #1, #2 or #3: 1 Performed By: #### L 500.2500, L501.4020, L300.4310, L100.0100, L300.3900 #### [facility] [address] [place], [address] Creatinine [Mass/Vol] 1.28 mg/dL Normal 0.70-1.30 [facility] Comment on above: Order Comment: 'TROP ' Serial specimen #1, #2 or #3: 1 Result Comment: The validity of the calculated GFR GFRAA in patients over 70 years has not been determined. Clinical correlation is essential. Performed By: #### L 500.2500, L501.4020, L300.4310, L100.0100, L300.3900 #### [facility] [address] [place], [address] EST GFR - AA 73 mL/min Normal >60 [facility] Comment on above: Order Comment: 'TROP ' Serial specimen #1, #2 or #3: 1 Result Comment: Afri can Palestinian GFR Calc Performed By: #### L 500.2500, L501.4020, L300.4310, L100.0100, L300.3900 #### [facility] [address] [place], [address] GAP 6 Normal 5-15 [facility] Comment on above: Order Comment: 'TROP ' Serial specimen #1, #2 or #3: 1 Performed By: #### L 500.2500, L501.4020, L300.4310, L100.0100, L300.3900 #### [facility] [address] [place], [address] GFR/1.73 sq M.predicted among non-blacks MDRD (S/P/Bld) [Vol rate/Area] 60 mL/min/{1.73_m2} Normal >60 [facility] Comment on above: Order Comment: 'TROP ' Serial specimen #1, #2 or #3: 1 Result Comment: Non- GFR Calc Performed By: #### L 500.2500, L501.4020, L300.4310, L100.0100, L300.3900 #### [facility] [address] [place], [address] Glucose [Mass/Vol] 72 mg/dL Low 74-106 [facility] Comment on above: Order Comment: 'TROP ' Serial specimen #1, #2 or #3: 1 Performed By: #### L 500.2500, L501.4020, L300.4310, L100.0100, L300.3900 #### [facility] [address] [place], [address] Potassium [Moles/Vol] 3.4 mmol/L Low 3.5-5.1 [facility] Comment on above: Order Comment: 'TROP ' Serial specimen #1, #2 or #3: 1 Performed By: #### L 500.2500, L501.4020, L300.4310, L100.0100, L300.3900 #### [facility] [address] [place], [address] Sodium [Moles/Vol] 140 mmol/L Normal 136-145 [facility] Comment on above: Order Comment: 'TROP ' Serial specimen #1, #2 or #3: 1 Performed By: #### L 500.2500, L501.4020, L300.4310, L100.0100, L300.3900 #### [facility] [address] [place], [address] Urea nitrogen [Mass/Vol] 20 mg/dL High 7-18 [facility] Comment on above: Order Comment: 'TROP ' Serial specimen #1, #2 or #3: 1 Performed By: #### L 500.2500, L501.4020, L300.4310, L100.0100, L300.3900 #### [facility] [address] [place], [address] Bedside Glucoseon 09-11-2023 FINGERSTICK GLU 69 mg/dL Low 74-106 [facility] Comment on above: Result Comment: CAROLA RICARDO OF PATIENT CARE PER NURSING PROTOCOL Performed By: #### L 500.4050, L500.4100 #### [facility] [address] [place] [place], [address] Brain without Contraston Brain without Contrast [facility] Services [address] [place] [address] Brain without Contrast MR#: [id number] Acct: [id number] Name: SHELLIERADHAEmma Parra Rep #: [id number] : 1960 M 62 From: Zak Zapata MD PCP: Dr. Darin Graham MD Status: ADM DUDLEY Study: Brain without Contrast Date of Exam: 09/11/23 Exam# [id number] Ordering Dr: Nasrin Leon MD ADDENDUM by Dr. Zak Zapata MD on 09/11/23 at 2146 [id number] STUDY: MRI BRAIN WITHOUT CONTRAST REASON FOR EXAM: Male, 62 years old. TIA/CVA TECHNIQUE: Multiplanar multisequence imaging of the brain was performed without the administration of intravenous contrast. COMPARISON: Noncontrast head CT 09/11/2023 FINDINGS: The ventricles, cisterns, and sulci are within normal limits for patients age. Linear focus of acute diffusion restriction abnormality in the high right parietal white matter. No succeptibility artifict to suggest intracranial hemorrhage or mineralization. Major intracranial signal voids are preserved. There is no midline shift, mass effect, or extra axial fluid collections are seen. No CP angle or IAC mass is seen. The orbits are unremarkable. The sella turcica and craniovertebral junction are within normal limits. The visualized paranasal sinuses are clear. The mastoid air cells are clear. 09/11/232145 Date cc: Dr. Nasrin Leon MD; Dr. Darin Graham MD * Signed ADDENDUM by Dr. Zak Zapata MD on 09/11/23 at 214 MRI/Brain without Contrast IMPRESSION: Acute ischemia in the high right parietal white matter. N.B. : The above Results were Read Back by Zak Zapata MD to Ioana Rabago RN, and understanding confirmed on 09/11/2023 22:24:59 (ET). Electronically Signed: Zak Zapata MD at 21:46 EDT , 09/11/232230 Date cc: Dr. Nasrin Leon MD; Dr. Darin Graham MD * Signed We are attempting to reach an attending provider to discuss findings. An addendum with communication details will be sent when the communication is complete. [id number] STUDY: MRI BRAIN WITHOUT CONTRAST REASON FOR EXAM: Male, 62 years old. TIA/CVA TECHNIQUE: Multiplanar multisequence imaging of the brain was performed without the administration of intravenous contrast. COMPARISON: Noncontrast head CT 09/11/2023 FINDINGS: The ventricles, cisterns, and sulci are within normal limits for patients age. Linear focus of acute diffusion restriction abnormality in the high right parietal white matter. No succeptibility artifict to suggest intracranial hemorrhage or mineralization. Major intracranial signal voids are preserved. There is no midline shift, mass effect, or extra axial fluid collections are seen. No CP angle or IAC mass is seen. The orbits are unremarkable. The sella turcica and craniovertebral junction are within normal limits. The visualized paranasal sinuses are clear. The mastoid air cells are clear. MRI/Brain without Contrast IMPRESSION: Acute ischemia in the high right parietal white matter. Electronically Signed: Zak Zapata MD at 21:46 EDT , CC: Dr. Nasrin Leon MD; Dr. Darin Graham MD Analytics Associate: Signed Normal [facility] CBC W/Diff, Automatedon 08-21 Absolute Lymph 2.41 X10 3/uL Normal 0.83-4.51 [facility] Comment on above: Performed By: #### L 500.2500, L501.4020, L300.4310, L100.0100, L300.3900 #### [facility] [address] [place], [address] Absolute Neut 3.5 X10 3/uL Normal 2.0-7.7 [facility] Comment on above: Performed By: #### L 500.2500, L501.4020, L300.4310, L100.0100, L300.3900 #### [facility] [address] [place], [address] Basophils/100 WBC (Bld) 0.6 % Normal 0-1 [facility] Comment on above: Performed By: #### L 500.2500, L501.4020, L300.4310, L100.0100, L300.3900 #### [facility] [address] [place], [address] Eosinophils/100 WBC (Bld) 4.1 % Normal 0-5 [facility] Comment on above: Performed By: #### L 500.2500, L501.4020, L300.4310, L100.0100, L300.3900 #### [facility] [address] [place], [address] Erythrocyte distribution width (RBC) [Ratio] 12.4 % Normal 11.6-14.6 [facility] Comment on above: Performed By: #### L 500.2500, L501.4020, L300.4310, L100.0100, L300.3900 #### [facility] [address] [place], [address] Hematocrit (Bld) [Volume fraction] 45.4 % Normal 40-54 [facility] Comment on above: Performed By: #### L 500.2500, L501.4020, L300.4310, L100.0100, L300.3900 #### [facility] [address] [place], [address] Hemoglobin (Bld) [Mass/Vol] 15.2 g/dL Normal 13.0-16.5 [facility] Comment on above: Performed By: #### L 500.2500, L501.4020, L300.4310, L100.0100, L300.3900 #### [facility] [address] [place], [address] IG% 0.300 Normal 0.0-0.9 [facility] Comment on above: Result Comment: IG% - Immature Granulocytes (promyelocytes, myelocytes and metamyelocytes) > 1% indicates that a LEFT SHIFT is Present. Performed By: #### L 500.2500, L501.4020, L300.4310, L100.0100, L300.3900 #### [facility] [address] [place], [address] Lymphocytes/100 WBC (Bld) 34.1 % Normal 19-41 [facility] Comment on above: Performed By: #### L 500.2500, L501.4020, L300.4310, L100.0100, L300.3900 #### [facility] [address] [place], [address] MCH (RBC) [Entitic mass] 29.3 pg Normal 27.0-32.0 [facility] Comment on above: Performed By: #### L 500.2500, L501.4020, L300.4310, L100.0100, L300.3900 #### [facility] [address] [place], [address] MCHC (RBC) [Mass/Vol] 33.5 g/dL Normal 32-36 [facility] Comment on above: Performed By: #### L 500.2500, L501.4020, L300.4310, L100.0100, L300.3900 #### [facility] [address] [place], [address] MCV (RBC) [Entitic vol] 87.5 fL Normal 80-94 [facility] Comment on above: Performed By: #### L 500.2500, L501.4020, L300.4310, L100.0100, L300.3900 #### [facility] [address] [place], [address] Monocytes/100 WBC (Bld) 11.6 % High 0-10 [facility] Comment on above: Performed By: #### L 500.2500, L501.4020, L300.4310, L100.0100, L300.3900 #### [facility] [address] [place], [address] Neutrophils/100 WBC (Bld) 49.3 % Normal 47-70 [facility] Comment on above: Performed By: #### L 500.2500, L501.4020, L300.4310, L100.0100, L300.3900 #### [facility] [address] [place], [address] Nucleated RBC (Bld) [#/Vol] 0 10*3/uL Normal 0-5 [facility] Comment on above: Performed By: #### L 500.2500, L501.4020, L300.4310, L100.0100, L300.3900 #### [facility] [address] [place], [address] Platelet mean volume (Bld) [Entitic vol] 10.1 fL Normal 6.2-12.0 [facility] Comment on above: Performed By: #### L 500.2500, L501.4020, L300.4310, L100.0100, L300.3900 #### [facility] [address] [place], [address] Platelets (Bld) [#/Vol] 260 10*3/uL Normal 150-450 [facility] Comment on above: Performed By: #### L 500.2500, L501.4020, L300.4310, L100.0100, L300.3900 #### [facility] [address] [place], [address] RBC (Bld) [#/Vol] 5.19 10*6/uL Normal 4.6-6.2 [facility] Comment on above: Performed By: #### L 500.2500, L501.4020, L300.4310, L100.0100, L300.3900 #### [facility] [address] [place], [address] RDW SD 39.4 fl Normal 35.1-43.9 [facility] Comment on above: Performed By: #### L 500.2500, L501.4020, L300.4310, L100.0100, L300.3900 #### [facility] [address] [place], [address] WBC (Bld) [#/Vol] 7.1 10*3/uL Normal 4.4-11.0 [facility] Comment on above: Performed By: #### L 500.2500, L501.4020, L300.4310, L100.0100, L300.3900 #### [facility] [address] [place], [address] CTA Head AND Neck W/ Contras ton 09-11-2023 CTA Head AND Neck W/ Contrast [facility] [address] [place] [address] CTA Head AND Neck W/ Contrast MR#: [id number] Acct: [id number] Name: LIZ HENSLEY Fidel Rep #: [id number] : 1960 M 62 From: Seth barragan MD PCP: Dr. Darin Graham MD Status: ADM DUDLEY Study: CTA Head AND Neck W/ Contrast Date of Exam: Exam# [id number] Ordering Dr: Susanna Mcdowell MD ADDENDUM by Dr. Seth Langley MD on 09/11/23 at 1732 [id number] STUDY: CTA HEAD AND NECK WITH CONTRAST REASON FOR EXAM: Male, 62 years old. TIA RADIATION DOSAGE (If Supplied By Facility): CTDIvol = ( 18.69 ) mGy, DLP = ( 969.36 ) mGycm TECHNIQUE: CT angiography was performed with a multi-detector CT scanner. Data acquisition was obtained from the skull base through the vertex following intravenous administration of IV 100mL Isovue-370. MIP images were reconstructed from the axial data set. Post-processing of the angiographic images was performed, with multiplanar reformation and 3D reconstruction. Individualized dose optimization techniques were used for this CT. COMPARISON: Head CT dated September 11, 2023 FINDINGS: Normal bilateral petrous carotid arteries. There is calcified plaque formation of the right cavernous carotid artery, with a moderate stenosis (50-75%). Normal left cavernous carotid artery with a normal supraclinoid bifurcation. Normal right A1 segments of the anterior cerebral artery. Normal left A1 segments of the anterior cerebral artery. Normal intact anterior communicating artery (ACOM). Normal bilateral A2 segments of the anterior cerebral arteries. Normal right M1 and M2 segments of the middle cerebral arteries, with a normal M1 bifurcation. Normal left M1 and M2 segments of the middle cerebral arteries, with a normal M1 bifurcation. There is non-visualization of the right posterior communicating artery (PCOM). Normal left posterior communicating artery (PCOM). Normal bilateral vertebral arteries. Normal basilar artery with a normal basilar bifurcation. The visualized bilateral superior cerebellar (SCA) arteries are normal. Normal bilateral P1, P2 and visualized P3 segments of the posterior cerebral arteries. There is no demonstrated aneurysm of the stillaguam[place] of [place]. No demonstrated thrombus or occlusion or hemodynamically significant stenosis of the major intracranial arteries. Neck CTA: AORTIC ARCH: There is atherosclerotic calcific plaque formation of the aortic arch and great vessels arising from the aortic arch, without a hemodynamically significant stenosis. There is a normal origin of the brachiocephalic, left common carotid, and left subclavian arteries. Normal origins of the brachiocephalic, left common carotid, and left subclavian arteries. RIGHT CAROTID ARTERIES: Normal right common carotid artery (CCA). There is mild atherosclerotic plaque formation with minimal narrowing of the right carotid bulb. There is mild atherosclerotic plaque formation of the origin of the right internal carotid artery with less than 50% cross sectional diameter stenosis. Normal visualized cervical portion of the right internal carotid artery. There is mild atherosclerotic plaque formation of the origin of the right external carotid artery with less than 50% cross sectional diameter stenosis. LEFT CAROTID ARTERIES: Normal left common carotid artery (CCA). There is mild atherosclerotic plaque formation with minimal narrowing of the left carotid bulb. Normal origin of the left internal carotid (ICA) artery without a hemodynamically significant stenosis. Normal visualized cervical portion of the left internal carotid artery. Normal origin of the left external carotid artery (ECA). VERTEBRAL ARTERIES: Mild atherosclerotic plaque and stenosis at the right vertebral/subclavian junction. Normal remaining aspects of the right extracranial vertebral artery. Normal left extracranial vertebral artery. 09/11/23 1732 Date cc: Dr. Darin Graham MD; Dr. Susanna Mcdowell MD * Signed ADDENDUM by Dr. Seth Langley MD on 09/11/[address]/CTA Head AND Neck W/ Contrast IMPRESSION: 1. There is no demonstrated aneurysm of the stillaguamish of [place]. No demonstrated thrombus or occlusion or hemodynamically significant stenosis of the major intracranial arteries. 2. Mild plaque of the right carotid bulb and origin of the ICA. N.B. : The above Results were Read Back by Seth Langley MD to Susanna Mcdowell MD, and understanding confirmed on 09/11/2023 17:31:00 (ET). Electronically Signed: Seth Langley MD at 17:32 EDT , Fax [phone] (more content not included)... Normal [facility] Chest 1 Viewon 09-11-2023 Chest 1 View [facility] [address], [place] [address] Chest 1 View MR#: [id number] Acct: [id number] Name: LIZ HENSLEY Rep #: [id number] : 1960 M 62 From: Seth barragan MD PCP: Dr. Darin Graham MD Status: REG ER Study: Chest 1 View Date of Exam: 09/11/23 Exam# [id number] Ordering Dr: Susanna Mcdowell MD [id number] STUDY: X-RAY CHEST REASON FOR EXAM: Male, 62 years old. Neuro deficit, acute, stroke suspected TECHNIQUE: Single AP portable view of the chest. COMPARISON: None. FINDINGS: The lungs are clear and expanded. There is no demonstrated pleural abnormality. Normal size heart. Normal mediastinum and sreekanth. Normal visualized pulmonary arteries. There is atherosclerotic tortuosity of the aortic arch and descending thoracic aorta. There are diffuse degenerative changes of the visualized thoracic spine. Normal visualized ribs, clavicles, and shoulders. There is no demonstrated abnormality of the visualized soft tissue structures of the upper abdomen. RAD/Chest 1 View IMPRESSION: Degenerative changes, as described above. No demonstrated acute cardiopulmonary process. Electronically Signed: Seth Langley MD at 16:57 EDT Reading Location ID and State: [facility] / [place] , Service support , CC: Dr. Darin Graham MD; Dr. Susanna Mcdowell MD Analytics Associate: Signed Normal [facility] Echo Completeon 09-11-2023 Echo Complete [facility] [address] [place] [address] Echo Complete 09/12/23 0949 MR#: [id number] Acct: [id number] Name: LIZ HENSLEY Rep #: [id number] : 1960 62 From: Kyle Licona MD Attending Dr: Dr. Herman Lopez, DO Status: A DM DUDLEY Ordering Dr: Nasrin Leon MD Date: 09/11/23 Location: [facility] Sex: M C Admitted: 09/11/23 Reason For Study: TIA/CVA Procedure This was a 2D Doppler, Color Flow transthoracic echocardiogram. Exam performed portable in patient room. Left Ventricle Normal LV size. Left ventricular systolic function is normal. The left ventricular ejection fraction is 60 %. No regional wall motion abnormalities noted. Right Ventricle Normal RV size. Normal systolic function. Atria Normal left atrium. Normal right atrium. Bubble contrast study negative for right to left interatrial shunt. Mitral Valve Systolic anterior motion of the mitral valve. Tricuspid Valve Normal tricuspid valve. Aortic Valve Trisinus/trileaflet aortic valve. Pulmonic Valve Normal pulmonic valve. Great Vessels Normal aortic root. The pulmonary artery is normal size. Normal inferior vena cava. Pericardium/Pleural No pericardial effusion. Medication Performed a rapid injection of agitated mix of 9 cc saline and 1cc air to assess for atrial septal defect. MMode/2D Measurements Calculations LVIDd: 5.0 cm IVSd: 0.98 cm LVOT diam: 2.2 cm LVIDs: 2.7 cm LVPWd: 0.92 cm RVDd: 3.8 cm FS: 46.1 % LVOT area: 3.8 cm2 Ao root diam: 3.5 cm LAV(MOD-bp): 36.4 ml LVAd ap4: 26.9 cm2 LAV(MOD-bp) Indexed: 16.4 ml/m2 LVLd ap4: 8.1 cm LAV(MOD-sp2): 35.6 ml EDV(MOD-sp4): 72.2 ml LAV(MOD-sp4): 37.2 ml EDV(sp4-el): 75.2 ml LVAs ap4: 14.7 cm2 LVLs ap4: 6.9 cm ESV(MOD-sp4): 27.7 ml ESV(sp4-el): 26.4 ml EF(MOD-sp4): 61.6 % EF(sp4-el): 64.8 % LVAd ap2: 28.0 cm2 SV(MOD-sp4): 44.5 ml SV(MOD-sp2): 55.1 ml LVLd ap2: 8.4 cm EDV(MOD-sp2): 78.1 ml EDV(sp2-el): 79.4 ml LVAs ap2: 13.4 cm2 LVLs ap2: 7.0 cm ESV(MOD-sp2): 23.0 ml ESV(sp2-el): 21.8 ml EF(MOD-sp2): 70.6 % SV(sp4-el): 48.7 ml LA dimension(2D): 3.8 cm LA A4 area: 15.8 cm2 RA A4 area: 13.7 cm2 TAPSE: 2.5 cm Time Measurements MV dec time: 0.24 sec Doppler Measurements Calculations MV E max everett: 65.1 cm/sec Lat Peak E' Everett: 10.4 cm/sec Med Peak E' Everett: 9.2 cm/sec MV A max everett: 70.5 cm/sec E/E' lat: 6.3 E/E' med: 7.0 MV E/A: 0.92 Ao V2 max: 149.7 cm/sec LV V1 max: 103.8 cm/sec MV dec slope: 276.6 cm/sec2 Ao max P.0 mmHg LV V1 max P.3 mmHg Ao V2 mean: 88.9 cm/sec LV V1 mean P.0 mmHg Ao mean P.7 mmHg LV V1 mean: 65.1 cm/sec Ao V2 VTI: 30.7 cm LV V1 VTI: 22.1 cm AV (velocity ratio): 0.72 NOHEMY(I,D): 2.7 cm2 NOHEMY(V,D): 2.6 cm2 SV(LVOT): 84.3 ml PA V2 max: 82.1 cm/sec PI end-d everett: 90.0 cm/sec PA max PG (full): 1.7 mmHg TR max everett: 252.3 cm/sec TR max P.5 mmHg ECHO/Echo Complete Interpretation Summary Normal LV size. Left ventricular systolic function is normal. The left ventricular ejection fraction is 60 %. Bubble contrast study negative for right to left interatrial shunt. Structurally normal valves. Ordering Physician: Nasrin Leon Referring Physician: Darin Graham MD Performed By: Tabitha Iniguez RDCS and Student 09/12/23 1117 Date Kyle Licona MD CC: Dr. Nasrin Leon MD; Dr. Darin Graham MD; Dr. Herman Lopez DO Date Dictated: 09/12/2349 Date Transcribed: 09/12/23 111 Analytics Associate: Signed Radha [facility] Emergency Department Summary on 09-11-2023 Emergency Department Summary [facility] Medical Records Department [address] [place] [address] Emergency Department Summary 09/11/23 MR#: [id number] Acct: [id number] Name: LIZ HENSLEY Rep #: [id number] : 1960 62 From: Susanna Mcdowell MD PCP: Dr. Darin Graham MD Status:ADM DUDLEY Location: [place] [address] HPI History of Present Illness Chief Complaint: Neuro S/Sx Informant: patient, spouse/S.O. and EMS Onset/Context/Timing Onset: Today Narrative Narrative: Patient presents secondary to slurred speech and unable to use his left arm. He was sitting at work around 325 when he suddenly had difficulty speaking, coworker noted left-sided his face drooping, and he was unable to use his left arm. He states symptoms lasted about 10 seconds and then resolved. Within a few minutes he had a second episode of the same symptoms. He states he did stand and his legs seem to be unaffected. At this time symptoms seem to be resolved. Patient denies any past medical history, however states it has been several years since he has seen a physician. He does report that he has been having a pulling sensation in his lower chest lately that he thought was a pulled muscle. He denies any chest pain at this time. PFSH PFSH Medical History Obesity Former cigarette smoker Chewing tobacco use Medical History no medical history no medical history Home Medications ???Medication ???Instructions ???Recorded ???Last Taken ???Type NK 02/09/21 Unknown History Allergy/AdvReac Type Severity Reaction Status Date / Time No Known Allergies Allergy Verified 09/11/23 16:00 Family History (Updated 09/11/23 @ 20:[address] Nasrin Leon MD) Mother Diabetes Father Diabetes Brother CAD (coronary artery disease) Heart disease Hypertension CVA (cerebral vascular accident) Surgical History History of dental surgery Surgical History no surgical history Social History (Updated 09/11/23 @ 20:[address] Nasrin Leon MD) household members: spouse Smoking Status: Former smoker Smokeless tobacco user: chewing tobacco how long ago did patient quit smoking: Quit cigarette tobacco use 15 yrs prior, 1 ppd since teen until quit. alcohol intake: current alcohol intake frequency: a few times a month Alcohol type: beer substance use type: does not use ROS ROS ED Constitutional Constitutional ED: Denies chills or fever(s) Eyes Eyes: Denies change in vision or discharge from eye(s) ENT ENT ED: Denies discharge from eye(s), rhinorrhea or sore throat Cardiovascular Cardiovascular: Denies chest pain or palpitations Respiratory/Chest Respiratory/Chest: Denies cough or dyspnea Gastrointestinal Gastrointestinal: Denies abdominal pain, nausea or vomiting Genitourinary Genitourinary ED: Denies dysuria Musculoskeletal Musculoskeletal: Denies back pain or extremity pain Integumentary Denies Abrasions or rash Neurologic Neurologic: Reports weakness and other Details: Speech difficulty ; Denies headache(s) Psychiatric Psychiatric: Denies anxiety or depression Allergic/Immunologic Allergic/Immunologic ED: Denies lip swelling or urticaria EXAM Physical Exam Const Vital Signs: 09/11/23 15:56 09/11/23 16:12 09/11/23 16:12 Temperature 97.0 F L Temperature Source Temporal Pulse Rate 82 89 Respiratory Rate 16 19 H Blood Pressure 145/102 H 156/97 H Blood Pressure Mean 116 116 Pulse Ox 99 98 100 Oxygen Delivery Method Room Air Room Air Room Air 09/11/23 16:42 Temperature Temperature Source Pulse Rate 84 Respiratory Rate 18 Blood Pressure 166/98 H Blood Pressure Mean 120 Pulse Ox 99 Oxygen Delivery Method Room Air Positive well nourished and well developed General Appearance ED: well developed HEENT Reports normocephalic and head/scalp atraumatic Eyes PERRL and EOMs intact bilaterally Neck supple Chest Wall inspection of chest normal and palpation of chest normal Resp normal respiratory effort and clear to auscultation bilaterally Cardio regular rate and regular rhythm GI normal to inspection, nondistended, normoactive bowel sounds Palpation: soft Extremity normal to inspection Neuro oriented x3 and no sensory deficits noted Sensorium / Orientation: alert Motor Exam: strength 5/5 throughout Psych mental status grossly normal Skin no rashes or lesions noted NIHSS NIHSS Initial: 1a Level of Consciousness: 0 1b LOC Questions (Score 2 if aphasic/stupor): 0 1c LOC Commands (Only score 1st attempt): 0 2 Best Gaze (If aphasic, use reflexive mvmts.): 0 3 Visual: 0 4 Facial Palsy: 0 5 Motor Arm Right (UN = amputation/fusion): 0 5 Motor Arm Left: 0 6 Motor Leg Right: 0 6 Motor Leg Left: 0 7 Limb ataxi (more content not included)... Normal [facility] H&P Exam - Hospitalist [facility] Medical Records Department [address] [place] [address] H P Exam - Hospitalist 09/11/23 1659 MR#: [id number] Acct: [id number] Name: LIZ HENSLEY Fidel Rep #: [id number] : 1960 62 From: Nasrin Leon MD PCP: Dr. Darin Graham MD Status:ADM DUDLEY Location: [place] [address] HPI - General General Date of Admission: 09/11/23 Date of Service: 09/11/23 Chief Complaint: Slurred speech, L sided facial droop, LUE paresthesias, LUE weakness. HPI Narrative The patient is a 62 y/o M w/ PMHx: Chew tobacco use, Obesity who presents to the [facility] ED on 09/11/23 with history of second work in approximately 325 onset significant difficulty speaking with a coworker noticing a left sided facial droop and at that point he was unable to use his left arm with also paresthesias with reportedly slurred speech with the symptoms lasting approximately 10 seconds with complete resolution following however he had another episode a few minutes following this with symptoms again resolving with no neurological findings to his lower extremities reporting that he was able to stand and move without issue that way and given these findings prompted ED evaluation to be cautious. He does report that he has not seen a physician in many years and denies any known medical history. In the ED initial NIH stroke score 0 with resolution of symptoms at time of ED evaluation. Patient also reported atypical sensation of lower chest strain notes he is regularly active but not necessarily aerobic but states it is currently improved. He denies any recent dyspnea. Workup in the ED included vital signs T97, heart rate 82, BP 145/102, respiratory rate 16, 99% on room air, CBC with WC 7.1, human 15.2, platelets 260 without marked shift, coags unremarkable, BMP with potassium 3.4, BUN/creatinine 20/1.28, glucose 72, troponin <3, EKG SR with incomplete RBBB, CT head with no acute intracranial findings, CTA head and neck with no demonstrated aneurysm in the stillaguam[place] of [place], no demonstrated thrombus or occlusion or hemodynamically significant stenosis of the major intracranial arteries, mild plaque of the right carotid bulb and origin of the ICA, CXR with no acute cardiopulmonary findings. ED discussed case and reviewed with neurology given stroke alert initiation. In the ED patient ministered full-strength aspirin therapy. [facility] Medical History Obesity Former cigarette smoker Chewing tobacco use Medical History no medical history Home Medications ???Medication ???Instructions ???Recorded ???Last Taken ???Type NK 02/09/21 Unknown History Allergy/AdvReac Type Severity Reaction Status Date / Time No Known Allergies Allergy Verified 09/11/23 16:00 Family History (Updated 09/11/23 @ 20:[address] Nasrin Leon MD) Mother Diabetes Father Diabetes Brother CAD (coronary artery disease) Heart disease Hypertension CVA (cerebral vascular accident) Surgical History History of dental surgery Surgical History no surgical history Social History (Updated 09/11/23 @ 20:[address] Nasrin Leon MD) household members: spouse Smoking Status: Former smoker Smokeless tobacco user: chewing tobacco how long ago did patient quit smoking: Quit cigarette tobacco use 15 yrs prior, 1 ppd since teen until quit. alcohol intake: current alcohol intake frequency: a few times a month Alcohol type: beer substance use type: does not use ROS ROS Narrative Admission Review of Systems: CONSTITUTIONAL: No weight loss, fever, chills, + weakness or fatigue. HEENT: + Transient left facial droop. Eyes: No visual loss, blurred vision, double vision or yellow sclerae. Ears, Nose, Throat: No hearing loss, sneezing, congestion, runny nose or sore throat. SKIN: No rash or itching, lesions, wounds. CARDIOVASCULAR: No chest pain, chest pressure or chest discomfort, palpitations, edema, orthopnea, syncopal events. RESPIRATORY: No shortness of breath, cough or sputum, wheezing, hemoptysis. GASTROINTESTINAL: No anorexia, nausea, vomiting or diarrhea, abdominal pain, melena, BRBPR. GENITOURINARY: No dysuria, frequency, urgency or retention. NEUROLOGICAL: + Transient left facial droop, slurred speech, left upper extremity paresthesias and left upper extremity weakness. No headache, dizziness, syncope, change in bowel or bladder control, seizure. MUSCULOSKELETAL: + muscle, back pain, joint pain or stiffness. HEMATOLOGIC: No anemia, bleeding or bruising. LYMPHATICS: No enlarged nodes. No history of splenectomy. PSYCHIATRIC: No history of depression or anxiety. ENDOCRINOLOGIC: No reports of sweating, cold or heat intolerance. No polyuria or polydipsia. ALLERGIES: No history of asthma, hives, eczema or rhinitis. Vital Signs Vital Signs Vital Signs: 09/11/23 (more content not included)... Normal [facility] L501.4020on 09-11-2023 TROPONIN-I HS 4 pg/mL Normal 3.0-78.0 [facility] Comment on above: Order Comment: Order Date: 10/18/23 Order Info: [id number] - CMP Order Info: [id number] - LIPID Order Info: [id number] - PSA Result Comment: Plea se Note: New Test Units and Gender Specific Reference Ranges. For more information see Policy Stat Procedure Barre High Sensitivity Troponin (TNIH) and attachments. Performed By: #### L 501.9910 #### [facility] [address] [place], [place], [address] TROPONIN-I HS < 3 Low 3.0-78.0 [facility] Comment on above: Order Comment: Comme nts: SPECIMEN #2 'TROP' Serial specimen #1, #2 or #3: 2 Result Comment: Plea se Note: New Test Units and Gender Specific Reference Ranges. For more information see Policy Stat Procedure Barre High Sensitivity Troponin (TNIH) and attachments. Performed By: #### L 501.4020 #### [facility] [address] [place], [place], [address] TROPONIN-I HS < 3 Low 3.0-78.0 [facility] Comment on above: Order Comment: 'TROP ' Serial specimen #1, #2 or #3: 1 Result Comment: Plea se Note: New Test Units and Gender Specific Reference Ranges. For more information see Policy Stat Procedure Barre High Sensitivity Troponin (TNIH) and attachments. Performed By: #### L 500.2500, L501.4020, L300.4310, L100.0100, L300.3900 #### [facility] [address] [place], [place], [address] Magnesiumon 09-11-2023 Magnesium [Mass/Vol] 2.2 mg/dL Normal 1.6-2.6 [facility] Comment on above: Order Comment: Order Date: 10/18/23 Order Info: [id number] - CMP Order Info: [id number] - LIPID Order Info: [id number] - PSA Performed By: #### L 500.4050, L500.4100 #### [facility] [address] [place], [place], [id number] Partial Thromboplast Timeon 09-11-2023 aPTT Coag (Bld) [Time] 26.4 s Normal 24.1-36.2 [facility] Comment on above: Performed By: #### L 500.2500, L501.4020, L300.4310, L100.0100, L300.3900 #### [facility] [address] [place], [address] Prothrombin Time w/INRon INR Coag (PPP) [Relative time] 0.9 {INR} Normal [facility] Comment on above: Performed By: #### L 500.2500, L501.4020, L300.4310, L100.0100, L300.3900 #### [facility] [address] [place], [address] PT Coag (PPP) [Time] 12.4 s Normal 11.7-14.9 [facility] Comment on above: Performed By: #### L 500.2500, L501.4020, L300.4310, L100.0100, L300.3900 #### [facility] [address] [place], [address] STROKE Brain/Head without Co nton 09-11-2023 STROKE Brain/Head without Cont [facility] Imaging Services [address] [place] [address] STROKE Brain/Head without Cont MR#: [id number] Acct: [id number] Name: LIZ HENSLEY Rep #: [id number] : 1960 M 62 From: Zak Zapata MD PCP: Dr. Darin Graham MD Status: REG ER Study: STROKE Brain/Head without Cont Date of Exam: 0 09/11/23 Exam# [id number] Ordering Dr: Susanna Mcdowell MD ADDENDUM by Dr. Zak Zapata MD on 09/11/23 at 1635 [id number] INDICATION: Neuro deficit, acute, stroke suspected EXAMINATION: CT BRAIN - CT Head or Brain W/O Contrast Injection TECHNIQUE: Multiple axial images were obtained of the head without intravenous contrast. A radiation dose optimization technique was used for this scan. IV Contrast dosage and agent: None. COMPARISON: None. __ FINDINGS: BRAIN PARENCHYMA: No intra- or extra-axial hemorrhage. No evidence of acute infarct. No intracranial mass or mass effect. There is preservation of the downing/white matter interface. Posterior fossa structures are unremarkable. CSF SPACES: Appropriate for age. No hydrocephalus. Basal cisterns are patent. CALVARIUM, SKULL BASE, PARANASAL SINUSES AND MASTOID AIR CELLS: Clear. No discrete lytic or blastic abnormalities. ORBITS: Both globes, extraocular muscles, optic nerves and retrobulbar fat appear unremarkable. 09/11/23 1635 Date cc: Dr. Darin Graham MD; Dr. Susanna Mcdowell MD * Signed ADDENDUM by Dr. Zak Zapata MD on 09/11/[address]/STROKE Brain/Head without Cont IMPRESSION: No acute intracranial findings. N.B. : The above Results were Read Back by Zak Zapata MD to Susanna Mcdowell MD, and understanding confirmed on 09/11/2023 16:37:35 (ET). Electronically Signed: Zak Zapata MD at 16:35 EDT , 09/11/23 1644 Date cc: Dr. Darin Graham MD; Dr. Susanna Mcdowell MD * Signed We are attempting to reach an attending provider to discuss findings. An addendum with communication details will be sent when the communication is complete. [id number] INDICATION: Neuro deficit, acute, stroke suspected EXAMINATION: CT BRAIN - CT Head or Brain W/O Contrast Injection TECHNIQUE: Multiple axial images were obtained of the head without intravenous contrast. A radiation dose optimization technique was used for this scan. IV Contrast dosage and agent: None. COMPARISON: None. __ FINDINGS: BRAIN PARENCHYMA: No intra- or extra-axial hemorrhage. No evidence of acute infarct. No intracranial mass or mass effect. There is preservation of the downing/white matter interface. Posterior fossa structures are unremarkable. CSF SPACES: Appropriate for age. No hydrocephalus. Basal cisterns are patent. CALVARIUM, SKULL BASE, PARANASAL SINUSES AND MASTOID AIR CELLS: Clear. No discrete lytic or blastic abnormalities. ORBITS: Both globes, extraocular muscles, optic nerves and retrobulbar fat appear unremarkable. CT/STROKE Brain/Head without Cont IMPRESSION: No acute intracranial findings. Electronically Signed: Zak Zapata MD at 16:35 EDT , CC: Dr. Darin Graham MD; Dr. Susanna Mcdowell MD Analytics Associate: Signed Normal [facility] Encounters Encounter Date Encounter Type Care Provider Facility Start: 02-05-2024 End: 02-05-2024 ambulatory Darin Graham Facility:[facility] Start: 11-18-2023 End: 11-18-2023 ambulatory Moffett Gladys Facility:[facility] Start: 09-12-2023 ambulatory Kyle Licona Facility:[facility] Start: 09-11-2023 End: 09-12-2023 ambulatory Herman John Facility:[facility] Payers Date Payer Category Payer Self-pay 2023 Unknown [id number] Unknown [id number] [id number] Unknown [id number] 2.16.8 [id number] Unknown [id number] 2.16.8 [id number] Unknown [id number] 2.16.8 [id number] Unknown [id number] 2.16.8 [id number] Unknown [id number] 2.16.8 [id number] Discharge summary note 09-12-2023 Note Date & Type Note Facility 09-12-2023 Note [facility] Medical Records Department [address] [place] [address] Discharge Summary 09/12/23 1321 MR#: [id number] Acct: [id number] Name: LIZ HENSLEY Rep #: [id number] : 1960 62 From: Hreman Lopez DO PCP: Dr. Darin Graham MD Status:ADM DUDLEY Location: [place] [address] Providers Date of Admission: 09/11/23 Date of Discharge: 09/12/23 Primary Care Physician: Dr. Darin Graham MD Consultations 09/11/23 18:21 Consult: Tele-Neurology Routine Consulting Provider: [facility] Reason for Consult: Acute Ischemic Stroke/TIA EMERGENT Consult: No MD Notified: Yes Date Notified: 09/11/23 Time Notified: 17:05 Method of Notification: ED Physician Initiated Nursing Unit Staff Notify [facility] of Tele-Neurology Consult: Yes Reason For Visit: TIA Diagnosis Discharge Diagnosis (1) Brain TIA: Status: Acute Code(s): G45.9 - Transient cerebral ischemic attack, unspecified Plan 1. Right parietal ischemic stroke #2 hyperlipidemia Medications at Discharge Home Medications aspirin 81 mg tablet,delayed release 81 mg PO DAILY #1 TAB 09/12/23 atorvastatin 80 mg tablet (Lipitor) 80 mg PO DAILY #30 tabs 09/12/23 clopidogrel 75 mg tablet (Plavix) 75 mg PO DAILY #30 tabs 09/12/23 Hospital Course Operations None Procedures 2-D Echocardiogram Summary of Care Provided Minutes Spent on Discharge: 31 Hospital Course: This 62-year-old white male was seen in the emergency room at [facility] with complaints of a brief episode of slurred speech and severe left arm weakness. Patient stated he was at work and suddenly had difficulty speaking, coworker noted left-sided facial drooping and he was unable to use his left arm for a brief period of time. The symptoms lasted approximately 10 seconds according to the patient patient then stated he had another brief episode shortly afterwards, by the time he got to the emergency room, he had no symptomology. A stroke alert was initiated when the patient got to the ER, his NIH stroke score was 0, he underwent a CT of the brain along with a CTA of the head and neck, these imaging tests were unremarkable for large vessel occlusion or acute process. Patient was placed in observation status on PCU, he underwent an MRI of the brain which showed a right parietal infarct, patient's lipid profile was abnormal showing an elevated LDH and cholesterol. Patient was seen and consultation by teleneurology, the results were relayed to me by nursing and the patient-I did not visualize the consultation before the patient was discharged home. It was recommended that the patient stay on Plavix and aspirin for 90 days and then stay on aspirin thereafter and it was also recommended he stay on a statin. Patient was evaluated by PT OT and speech therapy, the patient did not require outpatient PT OT or speech therapy. Echocardiogram was performed which showed no evidence of thrombus, there was no intra-atrial septal defect noted. On 09/12/2023, patient was seen and examined: On examination he appeared in good health and spirits. Vital signs as documented. Skin warm and dry and without overt rashes. Neck without JVD, neck was supple, trachea midline, thyroid was normal. Lungs clear bilaterally, normal air movement was noted. Heart exam notable for regular rhythm, normal sounds and absence of murmurs, rubs or gallops. Abdomen unremarkable and without evidence of organomegaly, masses, or abdominal aortic enlargement. Bowel sounds are present, abdomen is not distended. Extremities nonedematous, no cyanosis was noted, no clubbing was noted. Neuro: Cranial nerves II through XII are grossly intact, no focal motor deficits were noted, sensation to light touch and pinprick intact, motor exam 5/5 throughout. Psych: Patient is alert and oriented x3, he does not appear anxious or depressed, he does not appear agitated. Patient was discharged home in stable condition on 09/12/2023 Weight / BMI Weight Weight: 101.1 kg Body Mass Index (BMI) 30.2 ABG / Lab / Microbiology Data 09/12/23 06:09 09/12/23 06:09 Laboratory: Laboratory Results - last 24 hr 09/11/23 06:49: Urine Opiates Screen NEGATIVE, Urine Methadone Screen NEGATIVE, Ur Barbiturates Screen NEGATIVE, Ur Phencyclidine Scrn NEGATIVE, Ur Amphetamines Screen NEGATIVE, MDMA (Ecstasy) Screen NEGATIVE, U Benzodiazepines Scrn NEGATIVE, Urine Cocaine Screen NEGATIVE, U Cannabinoids Screen NEGATIVE, Ur Drug Screen Comment 09/11/23 16:15: WBC 7.1, RBC 5.19, Hgb 15.2, Hct 45.4, MCV 87.5, MCH 29.3, MCHC 33.5, RDW Std Deviation 39.4, RDW Coeff of [place] 12.4, Plt Count 260, MPV 10.1, Immature Gran % (Auto) 0.300, Neut % (Auto) 49.3, Lymph % (Auto) 34.1, Sebastian % (Auto) 11.6 H, Eos % (Auto) 4.1, Baso % (Auto) 0.6, Absolute Neuts (auto) 3.5, Absolute Lymphs (auto) 2.41, Nucleated RBC % 0 (more content not included)... [facility] Summary Purpose Family History No Family History Records Found Advance Directives No Advanced Directives Records Found Additional Source Comments (unrecognized sect ion and content) No Status Records Found INFORMATION SOURCE (unrecogn ized section and content) DATE CREATED AUTHOR 03/10/2024 [facility] FOR RECORDS PERTAINING TO PATIENTS WHO ARE OR HAVE BEEN ENROLLED IN A CHEMICAL DEPENDENCY/SUBSTANCEABUSE PROGRAM, SOME INFORMATION MAY BE OMITTED. This clinical summary was aggregated from multiple sources. Caution should be exercised in using it in the provision of clinical care. This summary normalizes information from multiple sources, and as a consequence, information in this document may materially change the coding, format and clinical context of patient data. In addition, data may be omitted in some cases. CLINICAL DECISIONS SHOULD BE BASED ON THE PRIMARY CLINICAL RECORDS. [facility]. provides no warranty or guarantee of the accuracy or completeness of information in this document.
[2024-08-19 08:28] LABS: ALB/GLOB Ratio 1.6 RATIO (0.9-2.4); AST(SGOT) 28 U/L (<=37); Alanine Aminotransfer ALT/SGPT 26 U/L (<=46); Albumin, Serum 4.3 g/dL (3.4-4.8); Alkaline Phosphatase 126 U/L (40-129); Anion Gap 11 (5-15); BUN 16 mg/dL (4-19); BUN/Creat Ratio 15.7 RATIO (10-20); Calcium,Total 9.1 mg/dL (7.6-11.0); Chloride 104 mmol/L (98-108); Creatinine, Serum 1.04 mg/dL (0.70-1.20); EST Glomerular Filtration Rate 80 (>60); Globulin 2.7 g/dL (2.2-4.2); Glucose 92 mg/dL (70-99); Potassium 4.3 mmol/L (3.3-5.1); Sodium Level 139 mmol/L (133-145); Total Bilirubin 0.51 mg/dL (0.00-1.30)
[2024-08-19 11:27] LABS: Cholesterol 154 mg/dL (<=200); High Density Lipoprotein 46 mg/dL; Low Density Lipoprotein Calc. 83 mg/dL; Triglycerides 129 mg/dL; Very Low Density Lipoprotein 26 mg/dL (5-40); cholesterol:hdl ratio screen 3.37
== END | disposition home or self-care (01) ==
PROVIDERS: PCP Family Medicine; Referring Provider Family Medicine; Visit Provider Family Medicine
DX: E78.5 Hyperlipidemia, unspecified (principal)
CPT/HCPCS: 36415; 80053; 80061